=== PATIENT | female | born 1965 | race Caucasian/White ===

== ENCOUNTER 2022-12-16 08:02 | Outpatient (CLI) | payer MEDICAID, SELFPAY | END 2022-12-16 08:03 | disposition home or self-care (01) | LOC: RAD 08:04 | PROVIDERS: PCP Family Medicine; Visit Provider Family Medicine | DX: R00.2 Palpitations (principal); I51.7 Cardiomegaly; I34.0 Nonrheumatic mitral (valve) insufficiency | CPT/HCPCS: 93225; 93226; 93306 ==

== ENCOUNTER 2023-02-24 11:33 | Outpatient (CLI) | payer MEDICAID, SELFPAY | END 2023-02-24 11:34 | disposition home or self-care (01) | PROVIDERS: PCP Family Medicine; Visit Provider Internal Medicine Cardiovascular Disease | DX: I10 Essential (primary) hypertension (principal); R09.02 Hypoxemia; G93.31 Postviral fatigue syndrome; Z13.6 Encounter for screening for cardiovascular disorders; Z13.29 Encounter for screening for other suspected endocrine disorder; Z82.49 Family history of ischemic heart disease and other diseases of the circulatory system | CPT/HCPCS: 80061; 82550; 84443 ==

== ENCOUNTER 2023-08-31 13:45 | Outpatient (RCR) | payer MEDICAID, SELFPAY | END 2023-09-15 10:05 | disposition home or self-care (01) | PROVIDERS: PCP Family Medicine; Visit Provider Family Medicine | DX: M79.671 Pain in right foot (principal); M76.61 Achilles tendinitis, right leg; Z51.89 Encounter for other specified aftercare | CPT/HCPCS: 97110; 97140; 97161; 97164 ==

== ENCOUNTER 2023-12-07 17:29 | Outpatient (REF) | payer MEDICAID, SELFPAY ==
--- OUTSIDE RECORDS SUMMARY | 2023-12-07 17:34 | XMS_ITS | Encounter Summary ---
Author Name Unknown Organization [facility] Address [address] [place] [address] Care Team Providers Care State Farm Agent Team Member Name Role Phone Unavailable Primary Care Provider Unavailabl e Reason for Visit * Reason Onset Date Comments Pre-visit Intake 09/21/2023 Encounter Details Date Type Department Care Team (Latest Contact Info) Description 09/21/2023 10:15 AM PROFESSOR OF FRENCH Clinical Communication Virtual Review in [place], [place] 200 [place], [place] [phone] Pre-visit Intake Social History Tobacco Use Types Packs/Day Years Used Date Smoking Tobacco: Never Passive Smoke Exposure: Past Smokeless Tobacco: Never Tobacco Cessation:Counseling Given: Not Answered Overall Financial Resource Strain (CARDIA) Answe r Date Recorded How hard is it for you to pa y for the very basics like food, housing, medical care, and heating? Somewhat hard 09/21/2023 Exercise Vital Sign Answer Date Recorde d On average, how many days pe r week do you engage in moderate to strenuous exercise (like a brisk walk)? 1 day 09/21/2023 On average, how many minutes do you engage in exercise at this level? 40 min 09/21/2023 Hunger Vital Sign Answer Date Recorded Within the past 12 months, y ou worried that your food would run out before you got the money to buy more. Never true 09/21/20 23 Within the past 12 months, t he food you bought just didn't last and you didn't have money to get more. Never true 09/21/2023 PRAPARE - Transportation Answer Date Re corded In the past 12 months, has l ack of transportation kept you from medical appointments or from getting medications? No 09/06 In the past 12 months, has l ack of transportation kept you from meetings, work, or from getting things needed for daily living? No 09/21/2023 Nutrition Answer Date Recorded Nutrition: EVOO Fat Source Unknown 09/21 On average, how many serving s of fruits and vegetables do you eat per day (serving size is equal to 1 cup or approximately the size of a tennis ball)? 0-2 09/21/2023 Dental Answer Date Recorded Dental: Regular Dentist No 09/21/20 Employment Answer Date Recorded Employment status Retired 09/21/2023 Housing Stability Answer Date Recorded What is your living situation today? I have a [facility] place to live 09/21/2023 Sex and Gender Information Value Date Recorded Sex Assigned at Female 07/26/2023 12:31 PM CDT Gender Identity Female 07/26/2023 12:31 PM CDT Sexual Orientation Straight 07/26/2023 12 :47 PM CDT documented as of this encounter Plan of Treatment Not on file documented as of this encounter Visit Diagnoses Not on filedocumented in this encounter
--- OUTSIDE RECORDS SUMMARY | 2023-12-07 17:34 | XMS_ITS ---
Author Name Unknown Organization [facility] Address [address] [place] [address] Care Team Providers Care Senior Clinical Study Manager Name Role Phone Unavailable Primary Care Provider Unavailabl e Bariatrics Program Status:Enrolled (Active) Start date:07/26/2023 Enrollment date:07/26/2023 Related social determinants of health:Food Insecurity, Transportation Needs Continued Care and Services Coordination
--- OUTSIDE RECORDS SUMMARY | 2023-12-07 17:34 | XMS_ITS | Encounter Summary ---
Author Name Unknown Organization [facility] Address [address] [place] [id number] Care Team Providers Care Network Support Administrator Name Role Phone Unavailable Primary Care Provider Unavailabl e Reason for Visit * Outpatient (Routine) - Closed Specialty Diagnoses / Procedures Referred By Gilbert lui Referred To Contact Nutrition Diagnoses Morbid Obesity Body Mass Index 50.0-59.9 Adult (HCC) Mila Deluna M.B.B.S., Eliseo [address] [place] [phone] [facility] Referral ID Status Reason Start Date Expiration Date Visits Re quested Visits Authorized [id number] Closed 07/26/2023 07/25/2024 1 1 Encounter Details Date Type Department Care Team ([facility] st Contact Info) Description 10/04/2023 8:00 AM PLUMBING SERVICE TECHNICIAN Telemedicine Department of Nutrition and Diabetes Education in [place], [place] [address] [place] [phone] Mila Deluna M.B.B.S., MMor [address] [place] [phone] Mikey Osorio RDN, LD [address] [place] [phone] Morbid Obesity Body Mass Index 50.0-59.9 Adult (HCC) Social History Tobacco Use Types Packs/Day Years Used Date Smoking Tobacco: Never Passive Smoke Exposure: Past Smokeless Tobacco: Never Overall Financial Resource Strain (CARDIA) Answe r [...] money to buy more. Never true 09/21/20 Within the past 12 months, t he [...] your living situation today? I have a [facility] place to live 09/21/2023 Sex and Gender Information Value Date Recorded Sex Assigned at Female 07/26/2023 12:31 PM CDT Gender Identity Female 07/26/2023 12:31 PM CDT Sexual Orientation Straight 07/26/2023 12 :47 PM CDT documented as of this encounter Progress Notes * Mikey Osorio RDN, LD - 10/04/2023 8:00 AM CST CHIEF COMPLAINT/REASON FOR VISIT Medical Nutrition Therapy for Weight Management. Patient interested in bariatric surgery in addition to lifestyle modifications. Met with patient. Consult conducted via real-time audio/video technology by Mikey Osorio RDN, LDin [facility] to the patient in Patient's Home. ASSESSMENT Food/Nutrition Related History Clarisse reports previous weight loss attempts include Weight Watchers and reducing calorie intake. She successfully lost 50 pounds with Weight Watchers but was unable to sustain this weight loss. She reports a gluten intolerance and lactose intolerance. She eats most meals at home. She is responsible for cooking and grocery shopping. She eats a meals prepared outside of home approximately 1 time every couple of months. She eats sweets about 2-3 times per week and acknowledges eating salty snacks daily. Typical Daily Intake Breakfast: Skips or coconut milk yogurt, 16 ounce coffee with 3 tablespoons regular flavored creamer Morning Snack: Apple Noon Meal: 2 slices gluten free bread;2 TBSP peanut butter;2 TSP jelly;4-6 baby carrots; water Afternoon Snack: 1/2 cucumber - sliced ;2 TBSP dill dip Evening meal: 1 [employer] Gluten Free cheese burrito; water Evening Snack: Popcorn (salted with butter) - 3 cups Beverage intake: Water, unsweetened almond milk, coffee Alcohol intake: None Physical activity: Clarisse Campos reports physical therapy 1 time per week. She has limited activitydue to knee issues. Weight History Ht Readings from Last 1 Encounters: No data found for Ht Wt Readings from Last 1 Encounters: No data found for Wt BMI Readings from Last 1 Encounters: No data found for BMI NUTRITION DIAGNOSIS Food and Nutrient related knowledge deficit (NB-1.1) related to lack of prior nutrition-related education as evidenced by patient report, excellent questions, and interest. Overweight/Obesity (NC-3.3) related to imbalance between energy intake and energy expenditure as evidenced by patient's intake, activity report, and elevated BMI. Nutrition Prescription/Recommendation Calorie controlled diet in preparation for bariatric surgery (focus on fruits, vegetables, lean protein, complex carbohydrates, low-fat dairy, heart healthy fat sources, and sugar free, non-carbonated, non-alcoholic beverages) Work towards intentional weight loss through goals outlined below INTERVENTION Education and Counseling: Weight management; Bariatric Nutrition Guidelines See Patient Education Record for information regarding education materials covered today. MONITORING AND EVALUATION: Nutrition parameter to monitor: Food intake; Weight Patient Goal(s): Aim for 3 balanced, portioned meals per day with planned, portioned, purposeful snacks as needed. Work towards eating slowly aiming to eat each meal over 30 minutes. Use non- dominant hand, smaller plates and utensils, chopsticks and/or putting utensils down between bites to prolong meal times. Work towards sipping on 1 cup (8 ounces) of fluids over 30 to 60 minutes. Work towards eating (meals) and drinking (fluids) by 30 minutes before and after each meal. Increase physical activity as medically feasible. Avoid carbonation and alcohol beverages lifelong in preparation for bariatric surgery. Aim for minimum of 64 ounces of fluid per day for adequate hydration with water as main source of hydration. Avoid foods and beverages high in fat and sugar in preparation for bariatric surgery. Limit sweets and salty snacks to 1 serving or less per week. FOLLOW UP PLAN: Follow-up appointment per protocol Time spent with patient (minutes): 60 BING SERVICE TECHNICIAN documented in this encounter Plan of Treatment Not on file documented as of this encounter Visit Diagnoses Diagnosis Morbid Obesity Body Mass Index 50.0-59.9 Adult (HCC) documented in this encounter
--- OUTSIDE RECORDS SUMMARY | 2023-12-07 17:34 | XMS_ITS | Referral Summary ---
Author Name Unknown Organization [facility] Address [address] [place] [address] Care Team Providers Care Chair Mechanic Name Role Phone Unavailable Primary Care Provider Unavailabl e Source Comments Patient records contain information from all sites at [facility]. For routine questions regarding patient records, call [phone] during business hours, M-F 8:00 AM - 5:00 PM Central Time. Record requests for emergency care only can be directed to [phone] at any time.[facility] Encounters Date Type Department Care Team Description 10/19/2023 Documentation Division of Endocrinology in [place], [place] [address] [place] [phone] Zeinab Olmstead M.D. 10/05/2023 Clinical Communication Division of Endocrinology in [place], [place] [address] [place] [phone] Zeinab Olmstead M.D. 10/04/2023 8:00 AM SENIOR TAX SPECIALIST Telemedicine Department of Nutrition and Diabetes Education in [place], [place] [address] [place] [phone] Mila Deluna M.B.B.S., Mikey Kruger, RASHIDA, LD Morbid Obesity Body Mass Index 50.0-59.9 Adult (HCC) 10/03/2023 2:30 PM SENIOR TAX SPECIALIST Telemedicine Division of Endocrinology in [place], [place] [address] [place] [phone] Zeinab Olmstead M.D. Gastroesophageal Reflux Disease (Primary Dx); Morbid Obesity Body Mass Index 50.0-59.9 Adult (HCC); Hypertension Essential Primary; Obstructive Sleep Apnea Adult; Fibromyalgia 09/21/2023 10:15 AM SENIOR TAX SPECIALIST Clinical Communication Virtual Review in [place] [address] [place] [address] Pre-visit Intake from Last 3 Months Allergies Active Allergy Reactions Criticality Noted Date Comments Aspartame Headache 09/21/2023 Codeine Headache,Other (see comments) High 2022 migraine Gluten GI intolerance,Hives only, no other systemic symptoms,Itching,Rash 09/21/2023 Pollen Extracts Cough,Headache,Short ness of breath 09/21/2023 Prednisone Nausea And Vomiting, Other (see comments),Palpitations High 01/16/2023 Sumatriptan Other (see comments),Palpitations High 01/16/2023 Heart issues Medications Medication Sig Dispensed Refills Start Date End Date Status Ventolin HFA 90 mcg/actuation inhaler Inhale 2 puffs every 4 (four) hours as needed. 0 Active amLODIPine (NORVASC) 10 mg tablet Take 10 mg by mouth daily. 0 Active busPIRone (BUSPAR) 10 mg tablet Take 5 mg by mouth 2 (two) times a day. 0 08/16/2023 Active carvediloL (COREG) 6.25 mg tablet Take 6.25 mg by mouth 2 (two) times a day with meals. 0 Active DULoxetine (CYMBALTA) [address] capsule Take 30 mg by mouth daily. 0 Active DULoxetine (CYMBALTA) [address] capsule Take 60 mg by mouth daily. 0 Active furosemide (LASIX) 20 mg tablet Take 20 mg by mouth daily. 0 Active fluticasone propionate (FLONASE ALLERGY RELIEF NASAL) 0 Active LORazepam (ATIVAN) 0.5 mg tablet Take 0.5 mg by mouth as needed. 0 01/15/2023 Active mirtazapine (REMERON) 7.5 mg tablet Take 7.5 mg by mouth at bedtime. 0 Active nystatin (MYCOSTATIN) 100,000 unit/gram cream Apply 1 Application topically as needed. 0 01/09/2023 Active omeprazole (PriLOSEC) [address] capsule Take 40 mg by mouth every morning before breakfast. 0 10/22/2022 Active ondansetron ODT (ZOFRAN-ODT) 4 mg disintegrating tablet Dissolve 4 mg in the mouth as needed. 0 Active rosuvastatin (CRESTOR) 5 mg tablet Take 5 mg by mouth daily. 0 03/09/2023 Active traMADoL (ULTRAM) 50 mg tablet Take 50 mg by mouth at bedtime. 0 Active zolpidem (AMBIEN) 10 mg tablet Take 10 mg by mouth at bedtime as needed. DECREASING DOSE TO FINISH 0 01/08/2023 Active UNABLE TO FIND Airselect, short, xlarge length of use 99 months 0 01/16/2023 Active multivitamin capsule Take 1 capsule by mouth daily. 0 Active Lactobacillus acidophilus capsule Take 1 capsule by mouth daily. 0 Active Active Problems Problem Noted Date Diagnosed Date Hypertension Essential Primary 10/03/2023 Obstructive Sleep Apnea Adult 10/03/2023 Gastroesophageal Reflux Disease 10/03/2023 Fibromyalgia 10/03/2023 Morbid Obesity Body Mass Index 50.0-59.9 Adult 1 12/03/2022 Social History Tobacco Use Types Packs/Day Years [...] your living situation today? I have a [facility] place to live 09/21/2023 Sex and Gender Information Value Date Recorded Sex Assigned at Female 07/26/2023 12:31 PM CDT Gender Identity Female 07/26/2023 12:31 PM CDT Sexual Orientation Straight 07/26/2023 12 :47 PM CDT Last Filed Vital Signs Vital Sign Reading Time Taken Comments Blood Pressure - - Pulse - - Temperature - - Respiratory Rate - - Oxygen Saturation - - Inhaled Oxygen Concentration - - Weight 169 kg (372 lb) 12/07/2023 2:00 PM SENIOR TAX SPECIALIST Height - - Body Mass Index - - Plan of Treatment Not on file Medical Devices Implanted Type Area Review Manager Device Identifier Shelf Expiration Date Model / Serial / Lot Hardware E.G. Pins/Screws/Ro ds Hardware e.g. pins/screws/r ods Mouth
--- OUTSIDE RECORDS SUMMARY | 2023-12-07 17:34 | XMS_ITS | Encounter Summary ---
Author Name Unknown Organization [facility] Address [address] [place] [address] Care Team Providers Care Sheet Rock Layer Name Role Phone Unavailable Primary Care Provider Unavailabl e Encounter Details Date Type Department Care Team ([facility] st Contact Info) Description 10/19/2023 Documentation Division of Endocrinology in [place], [place] [address] [place] [phone] Zeinab Arce M.D. [address] [place] [phone] Social History Tobacco Use Types Packs/Day Years [...] your living situation today? I have a [facility] place to live 09/21/2023 Sex and Gender Information Value Date Recorded Sex Assigned at Female 07/26/2023 12:31 PM CDT Gender Identity Female 07/26/2023 12:31 PM CDT Sexual Orientation Straight 07/26/2023 12 :47 PM CDT documented as of this encounter Progress Notes * Zeinab Arce M.D. - 10/19/2023 10:45 AM CST Testing completed in September of 2023 was reviewed. These included blood counts, electrolytes and metabolic parameters. Her fasting blood glucose was mildly elevated but her hemoglobin A1c was withinnormal. We will proceed with the evaluation as planned. E RESEARCHER documented in this encounter Plan of Treatment Not on file documented as of this encounter Visit Diagnoses Not on filedocumented in this encounter
--- OUTSIDE RECORDS SUMMARY | 2023-12-07 17:34 | XMS_ITS | Encounter Summary ---
Author Name Unknown Organization [facility] Address [address] [place] [address] Care Team Providers Care Sourcer Name Role Phone Unavailable Primary Care Provider Unavailabl e Reason for Visit * Reason Onset Date Comments Pre-Visit Nurse Assessment Phone call for Weight Management 07/26/2023 * Appointment Request (Routine) - Authorized Specialty Diagnoses / Procedures Referred By Gilbert lui Referred To Contact Endocrinology Diagnoses Gain Weight Referral ID Status Reason Start Date Expiration Date V isits Requested Visits Authorized [id number] Authorized 07/03/2023 07/02/2024 1 1 Encounter Details Date Type Department Care Team (Latest Contact Info) Description 07/26/2023 8:30 AM CDT Clinical Communication Division of Endocrinology in [place], [place] [address] [place] [phone] Corine Lafleur, R.N. Pre-Visit Nurse Assessment Phone call for Weight Management Social History Tobacco Use Types Packs/Day Years Used Date Smoking Tobacco: Never Assessed Nutrition Answer Date Recorded Nutrition: EVOO Fat Source Unknown 07/03 Nutrition: Servings of Fruits/Vegetables per Day Not on file 07/03/2023 Dental Answer Date Recorded Dental: Regular Dentist Unknown 07/03/20 23 Sex and Gender Information Value Date Recorded Sex Assigned at Female 07/26/2023 12:31 PM CDT Gender Identity Female 07/26/2023 12:31 PM CDT Sexual Orientation Straight 07/26/2023 12 :47 PM CDT documented as of this encounter Miscellaneous Notes * Telephone Encounter - Corine Lafleur, R.N. - 07/26/2023 8:08 AM CDT Pre-Visit Nurse Assessment Phone Call for weight management evaluation CHIEF COMPLAINT/REASON FOR CALL Patient was contacted for the pre-visit nurse assessment. Patient expressed interest in Bariatric Surgery. HISTORY OF PRESENT ILLNESS Patient responses to Medical and Psychosocial History Questionnaire: What is your height? (please respond in feet and inches) 5 ft 6 in What is your weight? (please respond in pounds) 360 Calculate your BMI using the BMI calculator (link opens a new window, calculate and return to questions) 58.1 Are you seeking a procedure or a surgery to promote weight loss? Yes Select one or multiple Bariatric Surgery Which of these medical problems do you have? (select all that apply) High blood pressure, Obstructive sleep apnea, Lymphedema, History of coronary artery disease (CAD) How do you describe your sleep apnea? Diagnosed Are you using a CPAP most days? Yes Is your lymphedema controlled well? No Have you been diagnosed with gastrointestinal (GI) dysmotility (impaired movement of food or fluidsthrough the GI tract, esophagus, or stomach)? No Have you regularly used narcotic or opioid medications as prescribed by your doctor over the past three months (e.g. oxycodone, norco)? No Have you ever been diagnosed with a mental health condition? Yes What mental health condition(s) were you diagnosed with? (select all that apply) Depression, Anxiety, Post-traumatic stress disorder (PTSD) Have you ever been under the care of a mental health provider? This would include a counselor, psychologist, or psychiatrist Yes Are you currently taking any medications to improve your mood, thoughts or behavior, otherwise known as psychotropic drugs? (e.g. Xanax, Zoloft, Celexa, Prozac, Ativan, Prozac, Wellbutrin, Lexapro, etc.) Yes How many medications are you taking to improve your mood, thought, or behavior? 2 Have you been hospitalized for a mental health condition? No Have you ever attempted suicide? No How many times in the past year have you used an illegal drug or used a prescription medication fornonmedical reasons? None Have you ever been in treatment for substance use (e.g. alcohol, drug, prescription medications)? No Have you ever been diagnosed with or treated for bulimia or anorexia? No Have you ever made yourself vomit, misused laxatives or water pills, didn't eat enough food to support your body's needs, or exercised too much to control your weight? No Do you regularly use tobacco, nicotine, e-cigarettes or vaping products? No Do you have a support person(s) in your life? (A support person is someone who can help you as you are recovering from bariatric surgery or someone who can be there for you when you are feeling down)Yes How many support persons do you have? More than one capable support person Are you able to live on your own without any help? Yes Do you have any barriers to learning such as cognitive, reading, hearing, or visual? No On average, how many days a week do you have an alcoholic drink? 0 On a typical drinking day, how many drinks do you have? 0 How many times in the past year have you drank more than 5 drinks (for men), or more than 4 drinks (for women) in one day? 0 In the last year, how much weight have you gained? greater than 35 lbs Are you currently taking any blood thinning medications? (ex. Eliquis, Pradaxa, Savaysa, Lovenox, Heparin, Xarelto, Coumadin) No Did you watch the educational videos and links that were sent to you? Yes ASSESSMENT/PLAN We will request appropriate appointments at [facility] including Endocrinology, Psychology, and Nutrition. Our schedulers will contact the patient. I explained that there may be patient-specific surgical prerequisites recommended by the bariatric team. Patient identified no barriers to learning. Our contact number was provided. Education: patient/caller able to teach back. The following references were used: nursing clinical judgement. documented in this encounter Plan of Treatment Not on file documented as of this encounter Visit Diagnoses Not on filedocumented in this encounter
--- OUTSIDE RECORDS SUMMARY | 2023-12-07 17:34 | XMS_ITS | Clinical Summary ---
Author Name Unknown Organization [facility] Address [address] [place] [address] Care Team Providers Care Drier Operator Name Role Phone Unavailable Primary Care Provider Unavailabl e Source Comments Patient records contain information from all sites at [facility]. For routine questions regarding patient records, call [phone] during business hours, M-F 8:00 AM - 5:00 PM Central Time. Record requests for emergency care only can be directed to [phone] at any time.[facility] Allergies Active Allergy Reactions Criticality Noted Date [...] Body Mass Index 50.0-59.9 Adult 1 12/03/2022 Encounters Date Type Department Care Team Description 10/19/2023 Documentation Division of Endocrinology in [place], [place] [address] [place] [address] Zeinab Olmstead M.D. 10/05/2023 Clinical Communication Division of Endocrinology in [place], [place] [address] [place] [phone] Zeinab Olmstead M.D. 10/04/2023 8:00 AM [facility] Telemedicine Department of Nutrition and Diabetes Education in [place], [place] [address] [place] [address] Mila Deluna M.B.B.S., M.D. Mikey Osorio RDN, LD Morbid Obesity Body Mass Index 50.0-59.9 Adult (HCC) 10/03/2023 2:30 PM TECHNICAL PRODUCER Telemedicine Division of Endocrinology in [place], [place] [address] [place] [phone] Zeinab Olmsteda M.D. Gastroesophageal Reflux Disease (Primary Dx); Morbid Obesity Body Mass Index 50.0-59.9 Adult (HCC); Hypertension Essential Primary; Obstructive Sleep Apnea Adult; Fibromyalgia 09/21/2023 10:15 AM TECHNICAL PRODUCER Clinical Communication Virtual Review in [place], [place] [address] [place] [address] Pre-visit Intake from Last 3 Months Social History Tobacco Use Types Packs/Day Years [...] your living situation today? [facility] a [facility] 09/21/2023 Sex and [...] 169 kg (372 lb) 12/07/2023 2:00 PM TECHNICAL PRODUCER Height - - Body Mass Index - - Plan of Treatment Health Maintenance Due Date Last Done Comments CT Colonography 1965 Cervical Cancer Screening 1965 Cologuard 1965 Colonoscopy 1965 Colorectal Cancer Screening 1965 Creatinine Level (Kidney Function Test) 1965 FIT 1965 Fasting Glucose for Diabetes Screening 1965 HIV Screening 1965 Hepatitis C Screening 1965 Lipid (Cholesterol) Screening 1965 Mammogram 1965 Office Visit for Blood Pressure Check / Re-check 1965 Potassium Level 1965 Sodium Level 1965 Depression Screening (Annual PHQ-2) 11/06/2023 DTaP,Tdap,and Td Vaccines (2 - Td or Tdap) 08/29/2028 08/29/2018 Zoster Vaccines Completed 10/20/2020, 08/06/2020 Hepatitis B Vaccines Completed 11/17/2022, 07/20/2022, 08/03/2015 Influenza Vaccine Completed 08/22/2023, , 07/29/2022, Additional history exists COVID-19 Vaccine Completed 09/19/2023, , 03/08/2022, Additional history exists Pneumococcal vaccine (0-64 years) Aged Out No longer eligible based on patient's age to complete this topic Medical Devices Implanted Type Area Accessibility Lift Technician Device Identifier Shelf Expiration Date Model / Serial / Lot Hardware E.G. Pins/Screws/Ro ds Hardware e.g. pins/screws/r ods Mouth
--- OUTSIDE RECORDS SUMMARY | 2023-12-07 17:34 | XMS_ITS | Encounter Summary ---
Author Name Unknown Organization [facility] Address [address] [place] [address] Care Team Providers Care Toddler Nanny Name Role Phone Unavailable Primary Care Provider Unavailabl e Reason for Referral * Behavioral Health (Routine) - Closed Specialty Diagnoses / Procedures Referred By Gilbert lui Referred To Contact Psychiatry / Psychiatry and Psychology Diagnoses Morbid Obesity Body Mass Index 50.0-59.9 Adult ([facility]) Mila Deluna M.B.B.S., M.D. [address] [place] [address] [facility] Referral ID Status Reason Start Date Expiration Date Visits Re quested Visits Authorized [id number] Closed 07/26/2023 07/25/2024 1 1 Scheduling Instructions Okay to schedule prior to Endo consult if open, but both visits should be within a week of each other * Outpatient (Routine) - Closed Specialty Diagnoses / Procedures Referred By Gilbert lui Referred To Contact Nutrition Diagnoses Morbid Obesity Body Mass Index 50.0-59.9 Adult ([facility]) Mila Deluna M.B.B.S., M.D. [address] [place] [address] [facility] Referral ID Status Reason Start Date Expiration Date Visits Re quested Visits Authorized [id number] Closed 07/26/2023 07/25/2024 1 1 Scheduling Instructions Should be scheduled after Endo consult * Outpatient (Routine) - Closed Specialty Diagnoses / Procedures Referred By Gilbert lui Referred To Contact Endocrinology Diagnoses Morbid Obesity Body Mass Index 50.0-59.9 Adult (HCC) Mila Deluna M.B.B.S., M.D. [address] [place] [address] [facility] Referral ID Status Reason Start Date Expiration Date Visits Re quested Visits Authorized [id number] Closed 07/26/2023 07/25/2024 1 1 Scheduling Instructions Should be scheduled first before Nutrition. Can be scheduled after Psych if visits are within a week of each other Encounter Details Date Type Department Care Team (Late st Contact Info) Description 07/26/2023 Orders Only Division of Endocrinology in [place], [place] [address] [place] [address] Corine Lafleur R.N. Morbid Obesity Body Mass Index 50.0-59.9 Adult (HCC) (Primary Dx) Social History Tobacco Use Types Packs/Day Years [...] as of this encounter Plan of Treatment Scheduled Referrals Name Type Priority Associated Diagnoses Order Schedule Endocrinology - Bariatric consult (clinic) Outpatient Referral Routine Morbid Obesity Body Mass Index 50.0-59.9 Adult (HCC) Expected: 07/26/2023 (Approximate), Expires: 10/25/2024 Nutrition - Bariatrics medical nutrition therapy consult (clinic) Outpatient Referral Routine Morbid Obesity Body Mass Index 50.0-59.9 Adult (HCC) Expected: 07/26/2023 (Approximate), Expires: 10/25/2024 Psychiatry and Psychology - Bariatric consult (clinic) Outpatient Referral Routine Morbid Obesity Body Mass Index 50.0-59.9 Adult (HCC) Expected: 07/26/2023 (Approximate), Expires: 10/25/2024 documented as of this encounter Visit Diagnoses Diagnosis Morbid Obesity Body Mass Index 50.0-59.9 Adult (HCC)- Primary documented in this encounter
--- OUTSIDE RECORDS SUMMARY | 2023-12-07 17:34 | XMS_ITS | Encounter Summary ---
Author Name Unknown Organization [facility] Address [address] [place] [address] Care Team Providers Care Optical Scientist Name Role Phone Unavailable Primary Care Provider Unavailabl e Encounter Details Date Type Department Care Team (Latest Contact Info) Description 10/05/2023 Clinical Communication Division of Endocrinology in [place], [place] [address] [place] [address] Zeinab Arce M.D. [address] [place] [phone] Social History Tobacco Use Types Packs/Day Years [...] your living situation today? I have a [facility] place to live 09/21/2023 Sex and [...]
--- OUTSIDE RECORDS SUMMARY | 2023-12-07 17:34 | XMS_ITS ---
Author Name Unknown Organization [facility] Address [address] [place] [address] Care Team Providers Care Neckties Painter Name Role Phone Unavailable Unavailable Unavailable Surgery Details Not on file Complications Check Surgery Details section. Procedure Estimated Blood Loss Check Surgery Details section. Procedure Findings Check Surgery Details section. Procedure Specimens Taken Check Surgery Details section.
--- OUTSIDE RECORDS SUMMARY | 2023-12-07 17:34 | XMS_ITS | Encounter Summary ---
Author Name Unknown Organization [facility] Address [address] [place] [address] Care Team Providers Care Manager Marketing Name Role Phone Unavailable Primary Care Provider Unavailabl e Reason for Visit * Outpatient (Routine) - Closed Specialty Diagnoses / Procedures Referred By Gilbert lui Referred To Contact Endocrinology Diagnoses Morbid Obesity Body Mass Index 50.0-59.9 Adult (HCC) Mila Deluna M.B.B.S., M.D. [address] [place] [phone] [facility] Referral ID Status Reason Start Date Expiration Date Visits Re quested Visits Authorized [id number] Closed 07/26/2023 07/25/2024 1 1 Encounter Details Date Type Department Care Team (Latest Contact Info) Description 10/03/2023 2:30 PM HAND DECORATOR Telemedicine Division of Endocrinology in [place], [place] [address] [place] [phone] Zeinab Arce M.D. [address] [place] [address] Gastroesophageal Reflux Disease (Primary Dx); Morbid Obesity Body Mass Index 50.0-59.9 Adult (HCC); Hypertension Essential Primary; Obstructive Sleep Apnea Adult; Fibromyalgia Social History Tobacco Use Types Packs/Day Years [...] your living situation today? I have a [facility] place to live 09/21/2023 Sex and Gender Information Value Date Recorded Sex Assigned at Female 07/26/2023 12:31 PM CDT Gender Identity Female 07/26/2023 12:31 PM CDT Sexual Orientation Straight 07/26/2023 12 :47 PM CDT documented as of this encounter Consult Notes * Zeinab Arce M.D. - 10/03/2023 2:30 PM CST SUBJECTIVE Telemedicine. CHIEF COMPLAINT / REASON FOR VISIT Weight management. HISTORY OF PRESENT ILLNESS Clarisse Campos is a 58 y.o. female who I am asked to see in consultation for evaluation and treatment of obesity. She is interested in bariatric surgery. She is a new patient to [facility] and have limited access to outside medical records. I did review thoseavailable in Care everywhere. She is currently at her heaviest weight of 360 lb. MEDICAL CO-MORBIDITIES: Patient Active Problem List Diagnosis Hypertension Essential Primary Obstructive Sleep Apnea Adult Gastroesophageal Reflux Disease Fibromyalgia HISTORY OF WEIGHT LOSS EFFORTS: Successful weight loss techniques attempted: Weight Watchers and she was able to lose 50 lb. Unsuccessful weight loss techniques attempted: self-directed dieting and Weight Watchers CURRENT EXERCISE HABITS: She participates in physical therapy for 45 minutes once a week. Activity Tracker: no CURRENT EATING HABITS: Obstacles to changes in eating habits? not feeling full or satisfied after a meal OTHER POTENTIAL CONTRIBUTING FACTORS: Psych History: mood disorder Comorbidities: GERD, High blood pressure, Osteoarthritis, and obstructive sleep apnea currently using a CPAP. The following portions of the patient's history were reviewed and updated as appropriate: allergies, current medications, family history, medical history, social history, surgical history, and problem list. REVIEW OF SYSTEMS She is a nonsmoker. She uses her CPAP faithfully. She had a recent medical assessment with laboratory tests. I do not have these available for my review. She did complete an echocardiogram earlier this year that revealed a leaky mitral valve leaflet otherwise no abnormalities. OBJECTIVE Reported HT: -165 cm WT: -163 kg BMI-60 kilograms/meter squared DIAGNOSTICS None available. ASSESSMENT / PLAN #1 Obesity Body Mass Index 50.0-59.9 Adult #2 Gastroesophageal Reflux Disease #3 Hypertension Essential Primary #4 Obstructive Sleep Apnea Adult #5 Fibromyalgia I do not have access to most recent height and weight, however based on her reported values her estimated body mass index is 50 kilograms/meter squared. This meets criteria for class 3 obesity. She has weight related medical complications that would benefit from weight loss. She is a candidate for b ariatric surgery. She is of low medical complexity. I have discussed the details of the evaluation required. Educational materials were reviewed. An appointment with a dietitian will be requested. The goal is at minimum weight maintenance. We discussed the importance or regular physical activity for correction success. The goal of physical activity in preparation for surgery is to improve fitness in the hopes of lowering perioperative risks for complications including . intermediate frame tender regular physical activity is the main predictor ofweight maintenance. I have encouraged monitoring of steps in order to minimize sedentary days. The goal will be at least 5000 steps daily. We also discussed the long-term goal of at least 150 minutes of exercise per week. She has seen our behavioral psychologist. The recommended participation in are 12 week program. I have discussed the following operations:Tio en Y gastric bypass and Biliopancreatic Diversion and Duodenal Switch. I have discussed the procedures themselves, weight loss outcomes, impact on medical co-morbidities, perioperative risks including risk of , correction risk for nutritional deficiencies and need for rodent exterminator nutritional supplements and follow up. We have discussed the risk factors associated with higher risk for complication and with bariatric surgery. These include the severity of obesity, inactivity, smoking, untreated obstructive sleep apnea to name a few. As a result we require at minimum weight maintenance, implementation of an activity program, smoking cessation and adequate control of health conditions such as treatment of Obstructive Sleep Apnea and HgbA1c < 8% for patients with diabetes. I have requested that she submit the laboratory tests recently completed for my review. I will review the results of the testing and communicate additional recommendations. Referral for bariatric surgery consultation will be pursued when the following is completed: 1. Lifestyle interventions to maintain weight (Diet and exercise). 2. Completion of recommendations outlined by our behavioral psychologists 3. Completion of medical evaluation recommended 4. Compliance with CPAP therapy I personally spent a total of 55 minutes in yjb-[id number]-face time performing a review of the recordand/or discussion with the patient/caregiver as described above. DECORATOR documented in this encounter Plan of Treatment Not on file documented as of this encounter Visit Diagnoses Diagnosis Gastroesophageal Reflux Disease- Primary Morbid Obesity Body Mass Index 50.0-59.9 Adult (HCC) Hypertension Essential Primary Obstructive Sleep Apnea Adult Fibromyalgia documented in this encounter
[2023-12-07 18:22] LABS: Basophils Percent Auto 0.6 % (0.0-3.0); Eosinophils Percent Auto 0.8 % (0.0-7.0); Hematocrit 42.7 % (33.0-51.0); Hemoglobin* 13.6 gm/dL (12.0-16.0); Immature Granulocytes Pct Auto 0.3 %; Lymphocytes Percent Auto 16.2 % (20-44); Mean Corpuscular HGB Conc 32 gm/dL (32-36); Mean Corpuscular Hemoglobin 27 pg (26-34); Mean Corpuscular Volume 83 fL (80-100); Monocytes Percent Auto 6.6 % (0.0-11.0); Neutrophils Percent Auto 75.5 % (42.0-72.0); Platelet Count* 454 K/uL (140-440); RDW Coefficient of Variation % 15.7 % (11.5-15.5); Red Blood Count 5.12 m/uL (4.00-5.20)
[2023-12-07 18:24] LABS: Slide Review Reflex No
[2023-12-07 18:26] LABS: Chloride* 102 mmol/L (96-114); Potassium* 4.3 mmol/L (3.6-5.1); Sodium* 138 mmol/L (135-149)
[2023-12-07 18:28] LABS: Creatinine* 0.8 mg/dL (0.5-1.5); Estimated Glomerular Filt Rate 85 ml/min
[2023-12-07 18:29] LABS: Anion Gap 16 mEq/L (7-15); Blood Urea Nitrogen* 17 mg/dL (7-30); Calcium* 10.4 mg/dL (8.4-10.6); Carbon Dioxide* 20 mmol/L (20-32); Glucose* 110 mg/dL (60-115)
[2023-12-07 18:46] LABS: Vitamin D 25 Hydroxy* 21 ng/mL (30-80)
== END 2023-12-07 17:30 | disposition home or self-care (01) ==
LOC: NPINS 17:29
PROVIDERS: PCP Family Medicine; Visit Provider Family Medicine
DX: R53.83 Other fatigue (principal); R60.0 Localized edema
CPT/HCPCS: 80048; 82306; 84443; 85025

== ENCOUNTER 2024-02-02 14:59 | Emergency (ER) | payer MEDICAID, SELFPAY ==
[2024-02-02 15:22] VITALS: BP 163/93; PULSE 117; RESP 22; TEMP 37.2; O2SAT 94; BMI 60.0
--- NOTE | 2024-02-02 15:29 | CT_ITS ---
Patient: RAPHAEL BEE Facility:?[facility] Patient ID:?[id number] Site Patient ID:?[id number]. Site :?[id number] Study:?CT-Chest PE W/ISOVUE 370 95CC-02/02/2024 4:45:32 PM Ordering Physician:DONI Final Report: Indication: cough, dyspnea, abnormal D dimer Technique: CT angiogram of the chest was performed for evaluation of pulmonary embolism. 95 mL of Isovue 370 intravenous contrast was administered. Comparison: None. Findings: CARDIOVASCULAR: Diagnostic quality: Contrast opacification of the pulmonary arterial circulation is adequate for assessment of pulmonary embolism. Study is not significantly limited by respiratory motion artifact. Pulmonary arteries: No filling defects to suggest pulmonary embolism. Not enlarged. Heart: No interventricular septal deviation. Normal in size. No significant coronary artery calcification. No significant valvular calcification. Pericardium: No pericardial effusion. Thoracic aorta: No significant abnormality. Two-vessel arch. REMAINING CHEST: Medical devices: None. Thyroid: Normal. Lymph nodes: No supraclavicular, axillary, mediastinal, or hilar lymphadenopathy. Other mediastinal structures: No significant abnormality. Lung parenchyma: Mild ill-defined patchy areas of consolidation and centrilobular nodularity are seen in the bilateral lungs. Airways: Moderate bronchial wall thickening. Pleura: No significant abnormality. Chest wall: No significant abnormality. Upper abdomen: No significant abnormality. Musculoskeletal: No significant abnormality. Impression: 1. No acute pulmonary embolism. 2. Mild ill-defined patchy areas of consolidation and centrilobular nodularity in the bilateral lungs are favored to represent multifocal infection. Recommend follow-up CT to ensure resolution. 3. Moderate bronchial wall thickening may represent airways infection or inflammation. Please note that all CT scans at this facility use dose modulation, iterative reconstruction, and/or weight-based dosing when appropriate to reduce radiation dose to as low as reasonably achievable. Dictated by Phani Hewitt MD @ 02/02/2024 5:26:22 PM Signed by:?Phani Hewitt MD @02/02/2024 5:26:22 PM (Electronic Signature)
--- NOTE | 2024-02-02 18:50 | ED.GENADULT ---
HPI - General Adult General Chief complaint: Cough Stated complaint: pneumonia Time Seen by Provider: 02/02/24 18:49 History of Present Illness HPI narrative: This is a pleasant 58-year-old female returns for drum the Urgent Care to the ER today for evaluation of abnormal D-dimer testing. She needs a CT PA to rule out PE. She actually presented to the urgent care today with concern for cough, shortness of breath. She had presented with about a 1 month at 3 is cough, shortness of breath, wheezing. She was already worked up in the urgent care. She was given prescriptions for nebulizers, oral steroids, inhaled steroids, and antibiotics to treat for community-acquired pneumonia. As part of her workup in the urgent care she did have lab testing, including D-dimer which was abnormal, prompting referral to the ER. Patient is not having any pleuritic chest pain. No hemoptysis. No history of DVT or PE. No swelling in her legs. Related Data Home Medications Medication Instructions Recorded Confirmed albuterol sulfate 90 mcg/actuation 2 puff inhalation Q4-6H PRN 08/25/22 02/02/24 aerosol inhaler carvedilol 6.25 mg tablet 6.25 mg PO BID 08/25/22 02/02/24 lactobacillus combination no.4 3 3,000 mmu cells PO QDAY 08/25/22 02/02/24 billion cell capsule (Probiotic) lorazepam 0.5 mg tablet 0.5 mg PO QDAY PRN 08/25/22 02/02/24 omeprazole 40 mg capsule,delayed 40 mg PO QDAY 08/25/22 02/02/24 release ondansetron 4 mg disintegrating 4 mg PO Q8H 08/25/22 02/02/24 tablet zolpidem 10 mg tablet 10 mg PO QHS PRN 08/25/22 02/02/24 amlodipine 10 mg tablet 10 mg PO DAILY 08/18/23 02/02/24 buspirone 5 mg tablet 5 mg PO BID 08/18/23 02/02/24 duloxetine 60 mg capsule,delayed 60 mg PO QDAY 08/18/23 02/02/24 release mirtazapine 7.5 mg tablet 7.5 mg PO QPM 08/18/23 02/02/24 multivitamin (Multiple Vitamins 1 tab PO QDAY 08/18/23 02/02/24 tablet) rosuvastatin 5 mg tablet 5 mg PO DAILY 08/18/23 02/02/24 fluticasone propionate 110 1 puff inhalation BID 02/02/24 02/02/24 mcg/actuation HFA aerosol inhaler Previous Rx's Medication Instructions Recorded albuterol sulfate 90 mcg/actuation 2 puff inhalation Q4H PRN 02/02/24 aerosol inhaler shortness of breath or wheezing #1 ea amoxicillin 875 mg-potassium 1 tab PO BID 7 days #14 tabs 02/02/24 clavulanate 125 mg tablet doxycycline hyclate 100 mg tablet 100 mg PO BID 7 days #14 tabs 02/02/24 fluconazole 150 mg tablet 150 mg PO Q3D 2 doses #2 tabs 02/02/24 ipratropium 0.5 mg-albuterol 3 mg 3 ml inhalation Q4H PRN shortness 02/02/24 (2.5 mg base)/3 mL nebulization of breath or wheezing #90 mL soln methylprednisolone 4 mg tablets in See Rx Instructions PO PER PKG DIR 02/02/24 a dose pack #21 ea Allergies Allergy/AdvReac Type Severity Reaction Status Date / Time acetaminophen Allergy Intermediate Migraine Verified 02/02/24 12:09 [From Tylenol-Codeine] codeine Allergy Intermediate Migraine Verified 02/02/24 12:09 [From Tylenol-Codeine] prednisone Allergy Intermediate tachycardia Verified 02/02/24 12:09 sumatriptan [From Imitrex] Allergy Intermediate Verified 02/02/24 12:09 [facility]LY [facility] PFS Medical History Anxiety ?F41.9 - Anxiety disorder, unspecified (ICD-10) Depression ?F32.A - Depression, unspecified (ICD-10) Hypertension ?I10 - Essential (primary) hypertension (ICD-10) Fibromyalgia ?M79.7 - Fibromyalgia (ICD-10) Surgical History H/O excision of ganglion cyst (10/2020) ?Z98.890 - Other specified postprocedural states (ICD-10) History of arthroplasty of finger of left hand (2020) ?Z96.692 - Finger-joint replacement of left hand (ICD-10) H/O total hysterectomy (10/2004) ?Z90.710 - Acquired absence of both cervix and uterus (ICD-10) History of arthroscopy of right shoulder (1994) ?Z98.890 - Other specified postprocedural states (ICD-10) Social History Smoking Status: Never smoker Do you use any of these nicotine containing products: None Second hand tobacco smoke exposure: No Exam Narrative: Exam Narrative: Constitutional: Appears well-developed and well-nourished. Alert. Conversant. Very polite. Non toxic. HENT: Head: Atraumatic. Nose: Nose normal. Mouth/Throat: Oral mucosa is clear and moist. no trismus. Eyes: Conjunctivae normal. EOM normal. Pupils equal, round, and reactive to light. No scleral icterus. Neck: Normal range of motion. Neck supple. No tracheal deviation present. No JVD Cardiovascular: Normal rate, regular rhythm. No gallop. No friction rub. No murmur heard. Pulmonary/Chest: Effort normal. No stridor. No respiratory distress. Bilateral fine wheezes and rales. No respiratory distress. Overall good aeration. No tenderness. Abdominal: Soft. Bowel sounds normal. No distension. No mass. No tenderness. No rebound. No guarding. Musculoskeletal: RUE: Normal range of motion. No tenderness. No deformity LUE: Normal range of motion. No tenderness. No deformity RLE: Normal range of motion. No edema. No tenderness. No deformity LLE: Normal range of motion. No edema. No tenderness. No deformity Neurological: Alert and oriented to person, place, and time. Normal strength. CN II-VII intact. No sensory deficit. GCS eye subscore is 4. GCS verbal subscore is 5. GCS motor subscore is 6. Normal coordination Skin: Skin is warm and dry. No rash noted. No pallor. Normal capillary refill. Psychiatric: Normal mood. Normal affect. Const: Vital Signs, click to edit/add: Vital Signs - 24 hr 02/02/24 15:22 Temperature 99.0 F Pulse Rate [Pulse Oximeter] 117 H Respiratory Rate 22 Blood Pressure [Ri ght Upper Arm] 163/93 H Pulse Oximetry 94 Oxygen Delivery Me thod Room Air Course Vital Signs Vital signs: Initial Vital Signs Temperature 99.0 F 02/02/24 15:22 Temperature Source Temporal Artery Scan 02/02/24 15:22 Pulse Rate 117 H 02/02/24 15:22 Respiratory Rate 22 02/02/24 15:22 Blood Pressure 163/93 H 02/02/24 15:22 Blood Pressure Mean 116 H 02/02/24 15:22 Blood Pressure Position Sitting 02/02/24 15:22 Pulse Oximetry 94 02/02/24 15:22 Oxygen Delivery Method Room Air 02/02/24 15:22 Vital Signs Temperature 99.0 F 02/02/24 15:22 Pulse Rate 117 H 02/02/24 15:22 Respiratory Rate 22 02/02/24 15:22 Blood Pressure 163/93 H 02/02/24 15:22 Pulse Oximetry 94 02/02/24 15:22 Oxygen Delivery Method Room Air 02/02/24 15:22 Temperature 99.0 F 02/02/24 15:22 Pulse Rate 117 H 02/02/24 15:22 Respiratory Rate 22 02/02/24 15:22 Blood Pressure 163/93 H 02/02/24 15:22 Pulse Oximetry 94 02/02/24 15:22 Oxygen Delivery Method Room Air 02/02/24 15:22 Medical Decision Making MDM Narrative Medical decision making narrative: Very polite 58-year-old female referred from urgent care today for evaluation of abnormal D-dimer. She actually has symptoms of cough with wheezing and abnormal lung sounds ongoing for the past month. She had already received nebulizers in urgent care and is doing better now that she was there. At this point there is no respiratory distress, hypoxia, or indication for hospitalization. I think it is appropriate for her to start on antibiotics given the lung findings on CT as well as treat for bronchospasm with bronchodilators and steroids per Fortunately CT scan shows no evidence for PE on her chest CT today. There are bilateral infiltrates which could be consistent with an atypical pneumonia. She is already on antibiotics-doxycycline and Augmentin prescribed by urgent care. Patient is stage for outpatient management. Discussed the for follow-up for repeat chest x-ray. Precautions for return to the ER reviewed and patient's questions were answered. She is eager for discharge and comfortable with the plan of care. Imaging Data CT scan - chest: Attestation: I have reviewed the pertinent imaging results. Radiologist's impression: Impression: 1. No acute pulmonary embolism. 2. Mild ill-defined patchy areas of consolidation and centrilobular nodularity in the bilateral lungs are favored to represent multifocal infection. Recommend follow-up CT to ensure resolution. 3. Moderate bronchial wall thickening may represent airways infection or inflammation. Discharge Plan Discharge Clinical Impression: Pneumonia Qualifiers: Pneumonia type: due to unspecified organism Laterality: unspecified laterality Lung location: unspecified part of lung Qualified Code(s): J18.9 - Pneumonia, unspecified organism Patient Disposition: Home, Self-Care Condition: Stable Instructions: Community Acquired Pneumonia (DC) Additional Instructions: Please take the antibiotics, nebulizers, and steroids as prescribed by the urgent care. It will typically take 2 or 3 days for symptoms to get better on the antibiotics. If you get any worse, come back to the urgent care or ER right away to be rechecked. Even if you get better, please recheck with your regular doctor or the urgent care in about 2 weeks to have a follow-up chest x-ray to make sure all of your areas of pneumonia have resolved. Prescriptions: No Action amlodipine 10 mg tablet 10 mg PO DAILY buspirone 5 mg tablet 5 mg PO BID mirtazapine 7.5 mg tablet 7.5 mg PO QPM rosuvastatin 5 mg tablet 5 mg PO DAILY multivitamin [Multiple Vitamins] Tablet 1 tab PO QDAY carvedilol 6.25 mg tablet 6.25 mg PO BID Rx Instructions: must administer with a meal/food omeprazole 40 mg capsule,delayed release(DR/EC) 40 mg PO QDAY zolpidem 10 mg tablet 10 mg PO QHS PRN lorazepam 0.5 mg tablet 0.5 mg PO QDAY PRN ondansetron 4 mg tablet,disintegrating 4 mg PO Q8H Probiotic 3 billion cell capsule 3,000 mmu cells PO QDAY Rx Instructions: administer with a meal albuterol sulfate 90 mcg/actuation HFA aerosol inhaler 2 puff inhalation Q4-6H PRN duloxetine 60 mg capsule,delayed release(DR/EC) 60 mg PO QDAY fluticasone propionate 110 mcg/actuation HFA aerosol inhaler 1 puff inhalation BID ipratropium-albuterol 0.5 mg-3 mg(2.5 mg base)/3 mL solution for nebulization 3 ml inhalation Q4H PRN (Reason: shortness of breath or wheezing) Qty: 90 2RF methylprednisolone 4 mg tablets,dose pack See Rx Instructions PO PER PKG DIR Qty: 21 0RF Rx Instructions: PO PER PKG DIR albuterol sulfate 90 mcg/actuation HFA aerosol inhaler 2 puff inhalation Q4H PRN (Reason: shortness of breath or wheezing) Qty: 1 0RF doxycycline hyclate 100 mg tablet 100 mg PO BID 7 Days Qty: 14 0RF amoxicillin-pot clavulanate 875-125 mg tablet 1 tab PO BID 7 Days Qty: 14 0RF fluconazole 150 mg tablet 150 mg PO Q3D Qty: 2 0RF Rx Instructions: may repeat second dose 72 hrs after first dose if symptoms persist Follow Up/Referrals: Hattie Ugalde [Primary Care Provider] - Stand Alone Forms: Secure [employer] Info Instructions
== END 2024-02-02 19:07 | disposition home or self-care (01) ==
LOC: ED 19:05
PROVIDERS: Emergency Provider Emergency Medicine; PCP Family Medicine
DX: J18.9 Pneumonia, unspecified organism (principal)
CPT/HCPCS: 71275; 85379; 99283; 99284; Q9967

== ENCOUNTER 2024-02-26 09:49 | Outpatient (CLI) | payer MEDICAID, SELFPAY ==
--- OUTSIDE RECORDS SUMMARY | 2024-02-26 09:51 | XMS_ITS | Encounter Summary ---
Author Name Unknown Organization [facility] Address [address] [place] [address] Care Team Providers Care Mutual Funds Agent Name Role Phone Unavailable Primary Care Provider Unavailabl e Reason for Referral * Outpatient (Routine) - Authorized Specialty Diagnoses / Procedures Referred By Gilbert lui Referred To Contact Endocrinology Diagnoses Morbid Obesity Body Mass Index 50.0-59.9 Adult (HCC) Zeinab Arce M.D. [address] [place] [address] [facility] Referral ID Status Reason Start Date Expiration Date V isits Requested Visits Authorized [id number] Authorized 02/05/2024 08/06/2025 1 1 Scheduling Instructions Face to face visit with Dr. Arce or any Endo Nutrition MD. Reason for Visit * Reason Onset Date Comments 12-week group completed 01/29/2024 Encounter Details Date Type Department Care Team (Latest Contact Info) Description 01/29/2024 Clinical Communication Division of Endocrinology in [place], [place] [address] [place] [phone] Zeinab Busch M.D. [address] [place] [address] 12-week group completed Social History Tobacco Use Types Packs/Day Years [...] your living situation today? I have a [facility] place to live 09/21/2023 Sex and Gender Information Value Date Recorded Sex Assigned at Female 07/26/2023 12:31 PM CDT Gender Identity Female 07/26/2023 12:31 PM CDT Sexual Orientation Straight 07/26/2023 12 :47 PM CDT documented as of this encounter Plan of Treatment Upcoming Encounters Date Type Department Care Team (Late st Contact Info) Description 04/16/2024 10:30 AM CDT Office Visit Division of Endocrinology in [place], [place] [address] [place] [address] Zeinab Arce M.D. [address] [place] [address] Scheduled Referrals Name Type Priority Associated Diagnoses Order Schedule Endocrinology office visit (clinic) Outpatient Referral Routine Morbid Obesity Body Mass Index 50.0-59.9 Adult (HCC) Expected: 03/06/2024, Expires: 05/04/2025 documented as of this encounter Visit Diagnoses Diagnosis Morbid Obesity Body Mass Index 50.0-59.9 Adult (HCC)- Primary documented in this encounter
--- OUTSIDE RECORDS SUMMARY | 2024-02-26 09:51 | XMS_ITS ---
Author Name Unknown Organization [facility] Address [address] [place] [address] Care Team Providers Care Farm Appraiser Name Role Phone Unavailable Primary Care Provider Unavailabl e Status:Enrolled (Active) Start date:07/26/2023 Enrollment date:07/26/2023 Related social determinants of health:Food Insecurity, Transportation Needs Continued Care and Services Coordination
--- OUTSIDE RECORDS SUMMARY | 2024-02-26 09:51 | XMS_ITS | Clinical Summary ---
Author Name Unknown Organization [facility] Address [address] [place] [address] Care Team Providers Care Parking Enforcer Name Role Phone Unavailable Primary Care Provider Unavailabl e Source Comments Patient records contain information from all sites at [facility]. For routine questions regarding patient records, call [phone] during business hours, M-F 8:00 AM - 5:00 PM Central Time. Record requests for emergency care only can be directed to [phone] at any time.[facility] Allergies Active Allergy Reactions Criticality Noted [...] puffs every 4 (four) hours as needed. Active amLODIPine (NORVASC) 10 mg tablet Take 10 mg by mouth daily. Active busPIRone (BUSPAR) 10 mg tablet Take 5 mg by mouth 2 (two) times a day. 08/16/2023 Active carvediloL (COREG) 6.25 mg tablet Take 6.25 mg by mouth 2 (two) times a day with meals. Active DULoxetine (CYMBALTA) [address] capsule Take 30 mg by mouth daily. Active DULoxetine (CYMBALTA) [address] capsule Take 60 mg by mouth daily. Active furosemide (LASIX) 20 mg tablet Take 20 mg by mouth daily. Active fluticasone propionate (FLONASE ALLERGY RELIEF NASAL) Active LORazepam (ATIVAN) 0.5 mg tablet Take 0.5 mg by mouth as needed. 01/15/2023 Active mirtazapine (REMERON) 7.5 mg tablet Take 7.5 mg by mouth at bedtime. Active nystatin (MYCOSTATIN) 100,000 unit/gram cream Apply 1 Application topically as needed. 01/09/2023 Active omeprazole (PriLOSEC) [address] capsule Take 40 mg by mouth every morning before breakfast. 10/22/2022 Active ondansetron ODT (ZOFRAN-ODT) 4 mg disintegrating tablet Dissolve 4 mg in the mouth as needed. Active rosuvastatin (CRESTOR) 5 mg tablet Take 5 mg by mouth daily. 03/09/2023 Active traMADoL (ULTRAM) 50 mg tablet Take 50 mg by mouth at bedtime. Active zolpidem (AMBIEN) 10 mg tablet Take 10 mg by mouth at bedtime as needed. DECREASING DOSE TO FINISH 01/08/2023 Active UNABLE TO FIND Airselect, short, xlarge length of use 99 months 01/16/2023 Active multivitamin capsule Take 1 capsule by mouth daily. Active Lactobacillus acidophilus capsule Take 1 capsule by mouth daily. Active Active Problems Problem Noted Date Diagnosed Date Hypertension Essential Primary 10/03/2023 Obstructive Sleep Apnea Adult 10/03/2023 Gastroesophageal Reflux Disease 10/03/2023 Fibromyalgia 10/03/2023 Morbid Obesity Body Mass Index 50.0-59.9 Adult 1 12/03/2022 Encounters Date Type Department Care Team Description 01/29/2024 Clinical Communication Division of Endocrinology in [place], [place] [address] [place] [address] Zeinab Kaur M.D. 12-week group completed from Last 3 Months Social History Tobacco [...] your living situation today? I have a [facility] place to live 09/21/2023 Sex and [...] - Inhaled Oxygen Concentration - - Weight 168 kg (371 lb) 01/11/2024 2:05 PM CASING CREW PUSHER Height - - Body Mass Index - - Plan of Treatment Upcoming Encounters Date Type Department Care Team (Late st Contact Info) Description 04/16/2024 10:30 AM CDT Office Visit Division of Endocrinology in [place], [place] [address] [place] [address] Zeinab Arce M.D. [address] [place] [address] Health Maintenance Due Date Last Done Comments [...] this topic Medical Devices Implanted Type Area Clinical Assoc Device Identifier Shelf Expiration Date Model / Serial / Lot Hardware E.G. Pins/Screws/R ods Hardware e.g. pins/screws/ rods Left: Hand Hardware E.G. Pins/Screws/R ods Hardware e.g. pins/screws/ rods Mouth
--- OUTSIDE RECORDS SUMMARY | 2024-02-26 09:51 | XMS_ITS | Referral Summary ---
Author Name Unknown Organization [facility] Address [address] [place] [address] Care Team Providers Care Hvac Technician Name Role Phone Unavailable Primary Care Provider Unavailabl e Source Comments Patient records contain information from all sites at [facility]. For routine questions regarding patient records, call [phone] during business hours, M-F 8:00 AM - 5:00 PM Central Time. Record requests for emergency care only can be directed to [phone] at any time[address] Encounters Date Type Department Care Team Description 01/29/2024 Clinical Communication Division of Endocrinology in [place], [place] [address] [place] [address] Zeinab Kaur M.D. 12-week group completed from Last 3 Months Allergies Active Allergy [...] your living situation today? I have a [facility] place to live 09/21/2023 Sex and [...] 168 kg (371 lb) 01/11/2024 2:05 PM SCENE PAINTER Height - - Body Mass Index - - Plan of Treatment Upcoming Encounters Date Type Department Care Team (Late st Contact Info) Description 04/16/2024 10:30 AM CDT Office Visit Division of Endocrinology in [place], [place] [address] [place] [address] Zeinab Arce M.D. [address] [place] [address] Medical Devices Implanted Type Area Pharmacovigilance Scientist Device Identifier Shelf Expiration Date Model / Serial / Lot Hardware E.G. Pins/Screws/R ods Hardware e.g. pins/screws/ rods Left: Hand Hardware E.G. Pins/Screws/R ods Hardware e.g. pins/screws/ rods Mouth
--- OUTSIDE RECORDS SUMMARY | 2024-02-26 09:51 | XMS_ITS ---
Author Name Unknown Organization [facility] Address [address] [place] [address] Care Team Providers Care Commercial Relationship Manager Name Role Phone Unavailable Unavailable Unavailable Surgery Details Not on file Complications Check Surgery Details section. Procedure Estimated Blood Loss Check Surgery Details section. Procedure Findings Check Surgery Details section. Procedure Specimens Taken Check Surgery Details section.
== END 2024-02-26 09:50 | disposition home or self-care (01) ==
LOC: RAD 09:50
PROVIDERS: PCP Family Medicine; Visit Provider Family Medicine
DX: I34.1 Nonrheumatic mitral (valve) prolapse (principal)
CPT/HCPCS: 93306

== ENCOUNTER 2024-06-13 13:29 | Outpatient (REF) | payer MEDICAID, SELFPAY ==
--- OUTSIDE RECORDS SUMMARY | 2024-06-13 13:35 | XMS_ITS | Encounter Summary ---
Author Organization [facility] Address [address] [place] [address] Care Team Providers Care Batteryman Name Role Phone Unavailable Primary Care Provider Unavailabl e Encounter Details Date Type Department Care Team (Late st Contact Info) Description 05/30/2024 Orders Only Preoperative Evaluation Center in [place], [place] [address] [place] [address] Grabiel Leonard, YSABEL, C.N.P., M.S. [address] [place] [address] Preanesthetic Medical Exam (Primary Dx); Morbid Obesity Body Mass Index 50.0-59.9 Adult (HCC); Gastroesophageal Reflux Disease Social History Tobacco Use Types Packs/Day Years Used Date Smoking Tobacco: Never Passive Smoke Exposure: Past Smokeless Tobacco: Never Alcohol Use Standard Drinks/Week Comments Not Currently 0 (1 standard drink = 0.6 oz pur e alcohol) Rarely have one drink Overall Financial Resource Strain (CARDIA) Answe r [...] living? No 09/21/2023 Nutrition Answer Date Recorded On average, how many serving s of fruits and vegetables do you eat per day (serving size is equal to 1 cup or approximately the size of a tennis ball)? 0-2 09/21/2023 Dental Answer Date Recorded Dental: Regular Dentist No 09/21/20 Employment Answer Date Recorded Employment status Retired 09/21/2023 Housing Stability Answer Date Recorded What is your living situation today? I have a [facility] place to live 09/21/2023 Sex and Gender Information Value Date Recorded Sex Assigned at Female 07/26/2023 12:31 PM CDT Gender Identity Female 07/26/2023 12:31 PM CDT Sexual Orientation Straight 07/26/2023 12 :47 PM CDT documented as of this encounter Plan of Treatment Upcoming Encounters Date Type Department Care Team (Latest Contact Info) Description 06/14/2024 1:00 PM CDT Telemedicine Department of Nutrition and Diabetes Education in [place], [place] [address] [place] [phone] Martha Hollins APRN, C.N.P., M.S.N. [address] [place] [phone] 06/27/2024 2:00 PM CDT Clinical Communication Virtual Review in [place], [place] [address] [place] [address] 07/01/2024 8:00 AM CDT Comprehensive Visit Preoperative Evaluation Center in [place], [place] [address] [place] [phone] Martha Hollins APRN, C.N.P., M.S.N. [address] [place] [phone] 07/01/2024 11:30 AM CDT Appointment Department of Laboratory Medicine and Pathology, [facility], in [place], [place] [address] [place] [phone] Grabiel Leonard APRN, C.N.P., M.S. [address] [place] [phone] 07/01/2024 1:45 PM CDT Comprehensive Visit Division of Metabolic and Abdominal Wall Reconstructive Surgery in [place], [place] [address] [place] [phone] Bobo Valdes M.D. [address] [place] [phone] 07/03/2024 7:05 AM CDT Hospital Encounter Post Anesthesia Care Unit in [place], [place] [address] [place] [phone] Bobo Valdes M.D. [address] [place] [phone] 07/03/2024 7:05 AM CDT - 07/03/2024 11:19 AM CDT Surgery [facility] [address] [place] [phone] Bobo Valdes M.D. [address] [place] [phone] ROBOTIC-ASSISTED DUODENAL SWITCH WITH OR WITHOUT ILEOILEOSTOMY Scheduled Orders Name Type Priority Associated Diagnoses Orde r Schedule CBC without Differential Lab Routine Preanesthetic Medical Exam Morbid Obesity Body Mass Index 50.0-59.9 Adult (HCC) Gastroesophageal Reflux Disease Expected: 06/15/2024, Expires: 08/30/2025 Comprehensive Metabolic Panel Lab Routine Preanesthetic Medical Exam Morbid Obesity Body Mass Index 50.0-59.9 Adult (HCC) Gastroesophageal Reflux Disease 1 Occurrences starting 05/30/2024 until 08/30/2025 Hemoglobin A1c Lab Routine Preanesthetic Medical Exam Morbid Obesity Body Mass Index 50.0-59.9 Adult (HCC) Gastroesophageal Reflux Disease Expected: 05/30/2024, Expires: 08/30/2025 Type and Screen (with Reflex Antibody ID) Lab Routine Preanesthetic Medical Exam Morbid Obesity Body Mass Index 50.0-59.9 Adult (HCC) Gastroesophageal Reflux Disease Expected: 05/30/2024, Expires: 05/07/2025 Scheduled Procedures Name Priority Associated Diagnoses Date/Ti ks ROBOTIC-ASSISTED SINGLE ANASTOMOSIS DUODENO-ILEOSTOMY 07/03/2024 7:05 AM CDT ROBOTIC-ASSISTED REPAIR PARAESOPHAGEAL HERNIA 07/03/2024 7:05 AM CDT documented as of this encounter Visit Diagnoses Diagnosis Preanesthetic Medical Exam- Primary Morbid Obesity Body Mass Index 50.0-59.9 Adult (HCC) Gastroesophageal Reflux Disease documented in this encounter
--- OUTSIDE RECORDS SUMMARY | 2024-06-13 13:35 | XMS_ITS | Encounter Summary ---
Author Organization [facility] Address [address] [place] [address] Care Team Providers Care Supervisor Cutting Department Name Role Phone Unavailable Primary Care Provider Unavailabl e Encounter Details Date Type Department Care Team (Latest Contact Info) Description 03/28/2024 7:30 AM CDT Ancillary Procedure Department of Gastroenterology Social History Tobacco Use Types Packs/Day Years [...] your living situation today? I have a [facility] place to live 09/21/2023 Sex and Gender [...] Department of Nutrition and Diabetes Education in [place], [place] [address] [place] [phone] Martha Hollins APRN, C.N.P., M.S.N. [address] [place] [phone] 06/27/2024 2:00 PM CDT Clinical Communication Virtual Review in [place], [place] 200 [place] [address] 07/01/2024 8:00 AM CDT Comprehensive Visit Preoperative Evaluation Center in [place], [place] [address] [place] [phone] Martha Hollins APRN, C.N.P., M.S.N. [address] [place] [phone] 07/01/2024 11:30 AM CDT Appointment Department of Laboratory Medicine and Pathology, [facility], in [place], [place] [address] [place] [phone] Grabiel Leonard APRN, C.N.P., M.S. [address] [place] [phone] 07/01/2024 1:45 PM CDT Comprehensive Visit Division of Metabolic and Abdominal Wall Reconstructive Surgery in [place], [place] [address] [place] [phone] Bobo Valdes M.D. [address] [place] [phone] 07/03/2024 7:05 AM CDT Hospital Encounter Post Anesthesia Care Unit in [place], [place] [address] [place] [phone] Bobo Valdes M.D. [address] [place] [phone] 07/03/2024 7:05 AM CDT - 07/03/2024 11:19 AM CDT Surgery [facility] MAIN OR [address] [place] [phone] Bobo Valdes M.D. [address] [place] [phone] ROBOTIC-ASSISTED DUODENAL SWITCH WITH OR WITHOUT ILEOILEOSTOMY Scheduled Procedures Name Priority Associated Diagnoses Date/Ti me ROBOTIC-ASSISTED SINGLE ANASTOMOSIS DUODENO-ILEOSTOMY 07/03/2024 7:05 AM CDT ROBOTIC-ASSISTED REPAIR PARAESOPHAGEAL HERNIA 07/03/2024 7:05 AM CDT documented as of this encounter Procedures Procedure Name Priority Date/Time Associated Diagnosis Comments GASTROENTEROLOGY IMAGE EXAM Routine 03/28/2024 7:30 AM CDT documented in this encounter Results * Upper GI endoscopy-Gastroenterology Image Exam (03/28/2024 7:30 AM CDT) 03/28/2024 7:28 AM CDT Narrative [facility] - 03/28/2024 8:34 AM CDT This order has been created and auto-finalized to support the import of images acquired without order. The clinical documentation to support these images can be found on the encounter that produced images. Provider Not In System IMG NON RAD IMAGI NG PROCEDURES [facility] NA documented in this encounter Visit Diagnoses Not on filedocumented in this encounter
--- OUTSIDE RECORDS SUMMARY | 2024-06-13 13:35 | XMS_ITS | Clinical Summary ---
Author Organization [facility] Address [address] [place] [address] Care Team Providers Care Provider Relations Coordinator Name Role Phone Unavailable Primary Care Provider Unavailabl e Source Comments Patient records contain information from all sites at [facility]. For routine questions regarding patient records, call [phone] during business hours, M-F 8:00 AM - 5:00 PM Central Time. Record requests for emergency care only can be directed to [phone] at any time.[facility] Allergies Active Allergy Reactions Criticality Noted [...] 50 mg by mouth at bedtime. Active multivitamin capsule Take 1 capsule by mouth daily. Active Lactobacillus acidophilus capsule Take 1 capsule by mouth daily. Active Active Problems Problem Noted Date Diagnosed Date Primary Osteoarthritis Knee Left 03/11/2024 Deficiency Vitamin D 03/11/2024 Depression 03/11/2024 Hypertension Essential Primary 10/03/2023 Obstructive Sleep Apnea Adult 10/03/2023 Gastroesophageal Reflux Disease 10/03/2023 Fibromyalgia 10/03/2023 Morbid Obesity Body Mass Index 50.0-59.9 Adult 1 12/03/2022 Encounters Date Type Department Care Team Description 05/30/2024 Orders Only Preoperative Evaluation Center in [place], [place] [address] [place] [address] Grabiel Leonard, YSABEL, C.N.P., M.S. Preanesthetic Medical Exam (Primary Dx); Morbid Obesity Body Mass Index 50.0-59.9 Adult (HCC); Gastroesophageal Reflux Disease 05/30/2024 Orders Only Division of Metabolic and Abdominal Wall Reconstructive Surgery in [place], [place] [address] [place] [address] Sindhu Reece, R.N. Morbid Obesity Body Mass Index 50.0-59.9 Adult (HCC) (Primary Dx) 04/22/2024 Clinical Communication Division of Metabolic and Abdominal Wall Reconstructive Surgery in [place], [place] [address] [place] [address] Bobo Valdes M.D. 04/03/2024 2:30 PM CDT Telemedicine Division of Metabolic and Abdominal Wall Reconstructive Surgery in [place], [place] [address] [place] [address] Bobo Valdes M.D. Morbid Obesity Body Mass Index 50.0-59.9 Adult (HCC); Gastroesophageal Reflux Disease 03/28/2024 8:02 AM CDT Anesthesia Event Division of Gastroenterology in [address] [phone] Evelyne Gonzalez Mubarak A, YSABEL, [employer]ER, DNAP 03/28/2024 7:30 AM CDT Ancillary Procedure Department of Gastroenterology 03/28/2024 6:44 AM CDT - 03/28/2024 9:15 AM CDT Hospital Encounter Division of Gastroenterology in [address] [phone] Martha Hollins, YSABEL, C.N.P., M.S.N. Evelyne Gonzalez Morbid Obesity Body Mass Index 50.0-59.9 Adult (HCC); Gastroesophageal Reflux Disease Discharge Disposition: Home or Self Care from Last 3 Months Family History Medical History Relation Name Comments Obesity Brother Jovanni Godboana maria Sleep apnea Brother Jovanni Godboana maria Migraines Daughter Ileana Slater Alcohol abuse Father Harley Godboana maria Anxiety disorder Father Harley Godboana maria Coronary artery disease Father Harley Andres Di ed 2013 Depression Father Harley Godbout Diabetes Father Harley Godbout Hyperlipidemia Father Harley Godbout Hypertension Father Harley Godbout Migraines Father Harley Godbout Obesity Father Harley Godbout Sleep apnea Father Harley Godbout Transient ischemic attack Father Harley Godbout Anxiety disorder Mother Zan Godbout Arthritis Mother Zan Godbout Depression Mother Zan Godbout Diabetes Mother Zan Godbout Hyperlipidemia Mother Zan Godbout Hypertension Mother Zan Godbout Migraines Mother Zan Godbout Obesity Mother Zan Godbout Breast cancer Mother's Sister 1 Zoila Koehler Breast cancer Mother's Sister 2 Noreen Harmno Her da naveed Tamez also. Anxiety disorder Sister Amber Slater Arthritis Sister Amber Slater Depression Sister Amber Slater Migraines Sister Amber Slater Obesity Sister Amber Slater Rheum arthritis Sister Amber Slater Relation Name Status Comments Brother Jovanni Campos Daughter Ileana Slater Father Harley Campos Mother Zan Campos Mother's Sister 1 Zoila Koehler Mother's Sister 2 Noreen Harmon Sister Amber Slater Social History Tobacco Use Types Packs/Day Years Used Date Smoking Tobacco: Never Passive Smoke Exposure: Past Smokeless Tobacco: Never Tobacco Cessation:Counseling Given: Not Answered Alcohol Use Standard Drinks/Week Comments Not Currently [...] your living situation today? [facility] have a [facility] to live 09/21/2023 Sex and Gender Information Value Date Recorded Sex Assigned at Female 07/26/2023 12:31 PM CDT Gender Identity Female 07/26/2023 12:31 PM CDT Sexual Orientation Straight 07/26/2023 12 :47 PM CDT Last Filed Vital Signs Vital Sign Reading Time Taken Comments Blood Pressure 157/91 03/28/2024 8:47 AM CDT Pulse 84 03/28/2024 8:47 AM CDT Temperature 36.4 ??C (97.5 ??F) 03/28/2024 8:26 AM CD T Respiratory Rate 17 03/28/2024 8:47 AM CDT Oxygen Saturation 95% 03/28/2024 8:47 AM CDT Inhaled Oxygen Concentration - - Weight 169 kg (372 lb) 03/28/2024 7:23 AM CDT Height 170.2 cm (5' 7) 03/28/2024 7:23 AM CDT Body Mass Index 58.26 03/28/2024 7:23 AM CDT Plan of Treatment Upcoming Encounters Date Type Department Care Team (Latest Contact Info) Description 06/14/2024 1:00 PM CDT Telemedicine Department of Nutrition and Diabetes Education in [place], [place] [address] [place] [phone] Martha Hollins APRN, C.N.P., M.S.N. [address] [place] [phone] 06/27/2024 2:00 PM CDT Clinical Communication Virtual Review in [place], [place] [address] [place] [address] 07/01/2024 8:00 AM CDT Comprehensive Visit Preoperative Evaluation Center in [place], [place] [address] [place] [phone] Martha Hollins APRN, C.N.P., M.S.N. [address] [place] [phone] 07/01/2024 11:30 AM CDT Appointment Department of Laboratory Medicine and Pathology, [facility], in [place], [place] [address] [place] [phone] Grabiel Leonard APRN, C.N.P., M.S. [address] [place] [phone] 07/01/2024 1:45 PM CDT Comprehensive Visit Division of Metabolic and Abdominal Wall Reconstructive Surgery in [place], [place] [address] [place] [phone] Bobo Valdes M.D. [address] [place] [phone] 07/03/2024 7:05 AM CDT Hospital Encounter Post Anesthesia Care Unit in [place], [place] [address] [place] [phone] Bobo Valdes M.D. [address] [place] [phone] 07/03/2024 7:05 AM CDT - 07/03/2024 11:19 AM CDT Surgery [facility] MAIN OR [address] [place] [phone] Bobo Valdes M.D. [address] [place] [phone] ROBOTIC-ASSISTED DUODENAL SWITCH WITH OR WITHOUT ILEOILEOSTOMY Scheduled Procedures Name Priority Associated Diagnoses Date/Ti me ROBOTIC-ASSISTED SINGLE ANASTOMOSIS DUODENO-ILEOSTOMY 07/03/2024 7:05 AM CDT ROBOTIC-ASSISTED REPAIR PARAESOPHAGEAL HERNIA 07/03/2024 7:05 AM CDT Health Maintenance Due Date Last Done Comments CT Colonography 1965 Cologuard 1965 Colonoscopy 1965 Colorectal Cancer Surveillance 1965 Creatinine Level (Kidney Function Test) 1965 Fasting Glucose for Diabetes Screening 1965 Hepatitis C Screening 1965 Lipid (Cholesterol) Screening 1965 Mammogram 1965 Potassium Level 1965 Sodium Level 1965 Depression Screening (Annual PHQ-2) 11/06/2023 Office Visit for Blood Pressure Check / Re-check 06/07/2024 03/07/2024 Influenza Vaccine (#1) 2024 , 07/20/2023, 07/29/2022, Additional history exists DTaP,Tdap,and Td Vaccines (2 - Td or Tdap) 08/29/2028 08/29/2018 Zoster Vaccines Completed 10/20/2020, 08/06/2020 Hepatitis B Vaccines Completed 11/17/2022, 07/20/2022, 08/03/2015 COVID-19 Vaccine Completed 09/19/2023, , 03/08/2022, Additional history exists Pneumococcal vaccine (0-64 years) Aged Out No longer eligible based on patient's age to complete this topic Medical Devices Implanted Type Area Equine Pharmacology Technician Device Identifier Shelf Expiration Date Model / Serial / Lot Hardware E.G. Pins/Screws/R ods Hardware e.g. pins/screws/ rods Left: Hand Hardware E.G. Pins/Screws/R ods Hardware e.g. pins/screws/ rods Mouth Procedures Procedure Name Priority Date/Time Associated Diagnosis Comments GASTROENTEROLOGY IMAGE EXAM Routine 03/28/2024 7:30 AM CDT UPPER GI ENDOSCOPY Routine 03/28/2024 7: 28 AM CDT Morbid Obesity Body Mass Index 50.0-59.9 Adult (HCC) Gastroesophageal Reflux Disease EGD (ESOPHAGEALGASTRODUODENO SCOPY) Routine 03/28/2024 7:28 AM CDT Morbid Obesity Body Mass Index 50.0-59.9 Adult (HCC) Gastroesophageal Reflux Disease from Last 3 Months Results * Upper GI endoscopy-Gastroenterology Image Exam [...] NON RAD IMAGI NG PROCEDURES [facility] NA * Upper GI Endoscopy (03/28/2024 7:28 AM CDT) 03/28/2024 7:28 AM CDT Impressions [facility] - 03/28/2024 8:26 AM CDT Post-op Diagnoses: ? - Normal esophagus without evidence of erosive esophagitis or Chatterjee's ? esophagus. ? - 3 cm sliding hiatal hernia. ? - Multiple benign fundic gland gastric polyps. No evidence of gastric ? erosions or ulcerations. ? - Normal examined duodenum. Narrative [facility] - 03/28/2024 8:26 AM CDT Isac 6 GI GI Patient Name: Clarisse Campos Date of : 1965 Age: 58 Procedure Date: 03/28/2024 Procedure: ? Upper GI endoscopy Providers: ? Wenceslao Fonseca MD Referring Provider: ?Martha Hollins Pre-op Diagnoses: ?Preoperative assessment for bariatric surgery to ? treat morbid obesity Recommendation: ? - Patient has a contact number available for emergencies. The signs and ? symptoms of potential delayed complications were discussed with the ? patient. Return to normal activities tomorrow. Written discharge ? instructions were provided to the patient. ? - Resume previous diet. ? - Return to referring provider. Findings: ? The examined esophagus was normal. The Z-line was regular at 37 cm from ? the incisors. ? There is no endoscopic evidence of Chatterjee's esophagus or esophagitis in ? the entire esophagus. ? A 3 cm sliding hiatal hernia was present from 37-40 cm from the incisors. ? Multiple benign small sessile fundic gland polyps were found in the ? gastric body. Otherwise normal-appearing gastric mucosa without evidence ? of erosions or ulcerations. ? The examined duodenum was normal. Procedural Details: ? The patient was seen, evaluated, history reviewed, airway and heart-lung ? exams were performed by licensed provider and were satisfactory for ? planned level of sedation care. ? The risks, benefits and alternatives for the procedure and sedation were ? discussed and informed consent was obtained. A procedural pause was ? conducted in the presence of assisting personnel to verify the correct ? patient identity and procedure to be performed. Throughout the ? procedure, the patient's blood pressure, pulse, and oxygen saturations ? were monitored continuously. The Gastroscope was introduced under direct ? vision through the mouth, and advanced to the second part of duodenum. ? The upper GI endoscopy was accomplished without difficulty. The patient ? tolerated the procedure well. Estimated Blood Loss: ?None. Complications: ? None. Sedation: ? Anesthesia was administered by an anesthesia professional. The following ? parameters were monitored: oxygen saturation, heart rate, blood ? pressure, respiratory rate, EKG, adequacy of pulmonary ventilation, and ? response to care. Attending Participation: I personally performed the entire procedure. Wenceslao Fonseca MD 03/28/2024 8:26:01 AM This report has been signed electronically. Number of Addenda: 0 Martha Hollins APRN, C.N.P., M.S.N. G I PROCEDURE ORDERABLES JESSICA REYNOLDS from Last 3 Months
--- OUTSIDE RECORDS SUMMARY | 2024-06-13 13:35 | XMS_ITS | Referral Summary ---
Author Organization [facility] Address [address] [place] [phone] Care Team Providers Care Activity Therapist Name Role Phone Unavailable Primary Care Provider Unavailabl e Source Comments Patient records contain information from all sites at [facility]. For routine questions regarding patient records, call [phone] during business hours, M-F 8:00 AM - 5:00 PM Central Time. Record requests for emergency care only can be directed to [phone] at any time.[facility] Encounters Date Type Department Care Team Description 05/30/2024 Orders Only Preoperative Evaluation Center in [place], [place] [address] [place] [address] Grabiel Leonard, YSABEL, C.N.P., M.S. Preanesthetic Medical Exam (Primary Dx); Morbid Obesity Body Mass Index 50.0-59.9 Adult (HCC); Gastroesophageal Reflux Disease 05/30/2024 Orders Only Division of Metabolic and Abdominal Wall Reconstructive Surgery in [place], [place] [address] [place] [phone] Sindhu Reece, Jose Morbid Obesity Body Mass Index 50.0-59.9 Adult (HCC) (Primary Dx) 04/22/2024 Clinical Communication Division of Metabolic and Abdominal Wall Reconstructive Surgery in [place], [place] [address] [place] [phone] Bobo Valdes M.D. 04/03/2024 2:30 PM CDT Telemedicine Division of Metabolic and Abdominal Wall Reconstructive Surgery in [place], [place] [address] [place] [phone] Bobo Valdes M.D. Morbid Obesity Body Mass Index 50.0-59.9 Adult (HCC); Gastroesophageal Reflux Disease 03/28/2024 7:30 AM CDT Ancillary Procedure Department of Gastroenterology 03/28/2024 8:02 AM CDT Anesthesia Event Division of Gastroenterology in [place], [place] [address] [place] [phone] Evelyne Gonzalez Mubarak A, APRN, ELBERT, DNAP 03/28/2024 6:44 AM CDT - 03/28/2024 9:15 AM CDT Hospital Encounter Division of Gastroenterology in [address] [phone] Martha Hollins, YSABEL, C.N.P., M.S.N. Evelyne Gonzalez Morbid Obesity Body Mass Index 50.0-59.9 Adult (HCC); Gastroesophageal Reflux Disease Discharge Disposition: Home or Self Care from Last 3 Months Allergies Active Allergy [...] your living situation today? I have a [facility] place to live 09/21/2023 Sex and [...] Department of Nutrition and Diabetes Education in [place], [place] [address] [place] [phone] Martha Hollins APRN, C.NRoro., M.S.N. [address] [place] [phone] 06/27/2024 2:00 PM CDT Clinical Communication Virtual Review in [place], [place] 200 [place] [phone] 07/01/2024 8:00 AM CDT Comprehensive Visit Preoperative Evaluation Center in [place], [place] [address] [place] [phone] Martha Hollins APRN, C.N.P., M.S.N. [address] [place] [phone] 07/01/2024 11:30 AM CDT Appointment Department of Laboratory Medicine and Pathology, [facility] in [place], [place] [address] [place] [phone] Grabiel Leonard, YSABEL, C.N.P., M.S. [address] [place] [phone] 07/01/2024 1:45 PM CDT Comprehensive Visit Division of Metabolic and Abdominal Wall Reconstructive Surgery in [place], [place] [address] [place] [phone] Bobo Valdes M.D. [address] [place] [phone] 07/03/2024 7:05 AM CDT Hospital Encounter Post Anesthesia Care Unit in [place], [place] [address] [place] [phone] Bobo Valdes M.D. [address] [place] [phone] 07/03/2024 7:05 AM CDT - 07/03/2024 11:19 AM CDT Surgery [facility] MAIN OR [address] [place] [phone] Bobo Valdes M.D. [address] [place] [address] ROBOTIC-ASSISTED DUODENAL SWITCH WITH OR WITHOUT ILEOILEOSTOMY Scheduled Procedures Name Priority Associated Diagnoses Date/Ti me ROBOTIC-ASSISTED SINGLE ANASTOMOSIS DUODENO-ILEOSTOMY 07/03/2024 7:05 AM CDT ROBOTIC-ASSISTED REPAIR PARAESOPHAGEAL HERNIA 07/03/2024 7:05 AM CDT Medical Devices Implanted Type Area Keno Attendant Device Identifier Shelf Expiration Date Model / [...] AM CDT) 03/28/2024 7:28 AM CDT Impressions [facility] - 03/28/2024 8:26 AM CDT Post-op Diagnoses: ? - Normal esophagus without evidence of erosive esophagitis or Chatterjee's ? esophagus. ? - 3 cm sliding hiatal hernia. ? - Multiple benign fundic gland gastric polyps. No evidence of gastric ? erosions or ulcerations. ? - Normal examined duodenum. Narrative [facility] - 03/28/2024 8:26 AM CDT Isac 6 [...] electronically. Number of Addenda: 0 Martha Hollins APRN C.N.P., M.S.N. G I PROCEDURE ORDERABLES [facility] NA from Last 3 Months
--- OUTSIDE RECORDS SUMMARY | 2024-06-13 13:35 | XMS_ITS | Encounter Summary ---
Author Organization [facility] Address [address] [place] [address] Care Team Providers Care Animal Caretaker Name Role Phone Unavailable Primary Care Provider Unavailabl e Reason for Visit * Outpatient (Routine) - Closed Specialty Diagnoses / Procedures Referred By Gilbert lui Referred To Contact General Surgery Diagnoses Morbid Obesity Body Mass Index 50.0-59.9 Adult (HCC) Gastroesophageal Reflux Disease Martha Hollins APRN, C.N.P., M.S.N. [address] [place] [phone] [facility] Referral ID Status Reason Start Date Expiration Date Visits Re quested Visits Authorized [id number] Closed 03/11/2024 09/10/2025 1 1 Encounter Details Date Type Department Care Team (Latest Contact Info) Description 04/03/2024 2:30 PM CDT Telemedicine Division of Metabolic and Abdominal Wall Reconstructive Surgery in [place], [place] [address] [place] [phone] Bobo Valdes M.D. [address] [place] [phone] Morbid Obesity Body Mass Index 50.0-59.9 Adult [...] your living situation today? I have a [facility] place to live 09/21/2023 Sex and Gender Information Value Date Recorded Sex Assigned at Female 07/26/2023 12:31 PM CDT Gender Identity Female 07/26/2023 12:31 PM CDT Sexual Orientation Straight 07/26/2023 12 :47 PM CDT documented as of this encounter Consult Notes * Stefany Jason M.D. - 04/03/2024 2:30 PM CDT SUBJECTIVE CHIEF COMPLAINT / REASON FOR VISIT Clarisse Campos is a 58 y.o. female presenting in referral from Martha Hollins APRN* for consideration for bariatric surgery. HISTORY OF PRESENT ILLNESS Ms. Campos presents to the clinic for evaluation to undergo bariatric surgery. Her current BMI is 59. She states that she has thought about undergoing surgery to achieve weight loss for over 10 years, and now is confident that she will be able to follow the recommendations entailed with surgery. Her associated comorbidities are GERD, LESLEY on CPAP, HTN, fibromyalgia, depression, and osteoarthritis. Her past surgical history is significant for hysterectomy and appendectomy through an open midlineincision. She does not take any blood thinners or steroids. She is a non-smoker. On most recent echo, EF was 60-65%. EGD: normal esophagus, 3 cm sliding hiatal hernia, and multiple benign fundic gland gastric polyps OBJECTIVE PHYSICAL EXAM Video visit ASSESSMENT / PLAN #1 Morbid Obesity Body Mass Index 50.0-59.9 Adult ([facility]) #2 Gastroesophageal Reflux Disease Clarisse Campos is a very pleasant 58 y.o. female that presents for bariatric surgery evaluation. Please see Dr. Valdes's addendum for further details. Stefany Jason MD General Surgery PGY-1 Associated attestation - Bobo Valdes M.D. - 04/04/2024 10:26 AM CDT I saw and evaluated the patient, participating in the benjamin portions of the service. I reviewed the resident/fellow???s note. I agree with the resident/fellow???s findings. ASSESSMENT / PLAN I discussed with the patient her options again. This includes sleeve, bypass, and duodenal switch. She wants to proceed with duodenal switch knowing that she has higher BMI and sleeve and bypass may not give the appropriate weight loss for her to regain her life back. But with the traditional duodenal switch, she has concerns about the possible nutritional deficiencies that can happen ferry terminal agent. Additionally, she has a high BMI, and most of her weight is in the lower abdomen. This can make things difficult for the ileo-ileal anastomosis tailoring. This makes her a candidate to proceed with a duodenal ileostomy as well as sleeving the stomach, and then due to the anticipated difficulty of pro ceeding with the ileoileostomy, then we can do it as a 2-step procedure, if ever needed. Also, thisway, especially with her concerns, this will address some of the nutritional deficiency concerns she has. Again, proceeding this way will also shorten the operative time and hopefully try to avoid complications including but not limited to blood clots in this patient. Therefore, again, we will be proceeding with the duodenal switch with or without ileoileostomy. This was discussed totally with the patient. She totally understands. In fact, that is her preference to hopefully try to avoid complications. We discussed that again there is chance of bleeding, infection, and an anastomotic leak. There is also a chance of blood clots. There is also chance of dumping syndrome as well as ulcers. Chance of dumping and ulcers are lower with the duodenal switch rather than the Tio-en-Y gastric bypass. That said, there is always a chance of reflux. The patient totallyunderstands. She wants to proceed. The patient totally understands and wishes to proceed. Planning on duodenal switch (including a sleeved stomach with duodenoileostomy with or without ileoileostomy). Please reach out to me for any questions. I would be more than happy to discuss this case personally and explain our rationale. documented in this encounter Plan of Treatment Upcoming Encounters Date Type Department Care Team (Latest Contact Info) Description 06/14/2024 1:00 PM CDT Telemedicine Department of Nutrition and Diabetes Education in [address] [phone] Martha Hollins APRN, C.N.P., M.S.N. [address] [place] [phone] 06/27/2024 2:00 PM CDT Clinical Communication Virtual Review in [place], [place] 200 [place] [phone] 07/01/2024 8:00 AM CDT Comprehensive Visit Preoperative Evaluation Center in [address] [phone] Martha Hollins APRN, C.N.P., M.S.N. [address] [place] [phone] 07/01/2024 11:30 AM CDT Appointment Department of Laboratory Medicine and Pathology, [facility], in [place], [place] [address] [place] [phone] Grabiel Leonard, YSABEL, C.N.P., M.S. [address] [place] [phone] 07/01/2024 1:45 PM CDT Comprehensive Visit Division of Metabolic and Abdominal Wall Reconstructive Surgery in [place], [place] [address] [place] [phone] Bobo Valdes M.D. [address] [place] [phone] 07/03/2024 7:05 AM CDT Hospital Encounter Post Anesthesia Care Unit in [place], [place] [address] [place] [phone] Bobo Valdes M.D. [address] [place] [phone] 07/03/2024 7:05 AM CDT - 07/03/2024 11:19 AM CDT Surgery [facility] OR [address] [place] [phone] Bobo Valdes M.D. [address] [place] [phone] ROBOTIC-ASSISTED DUODENAL SWITCH WITH OR WITHOUT ILEOILEOSTOMY Scheduled Procedures Name Priority Associated Diagnoses Date/Ti ma ROBOTIC-ASSISTED SINGLE ANASTOMOSIS DUODENO-ILEOSTOMY 07/03/2024 7:05 AM CDT ROBOTIC-ASSISTED REPAIR PARAESOPHAGEAL HERNIA 07/03/2024 7:05 AM CDT documented as of this encounter Visit Diagnoses Diagnosis Morbid Obesity Body Mass Index 50.0-59.9 Adult (HCC) Gastroesophageal Reflux Disease documented in this encounter
--- OUTSIDE RECORDS SUMMARY | 2024-06-13 13:35 | XMS_ITS | Encounter Summary ---
Author Organization [facility] Address [address] [place] [id number] Care Team Providers Care Medical Fee Clerk Name Role Phone Unavailable Primary Care Provider Unavailabl e Reason for Referral * Outpatient (Routine) - Authorized Specialty Diagnoses / Procedures Referred By Gilbert t Referred To Contact Anesthesiology Diagnoses Morbid Obesity Body Mass Index 50.0-59.9 Adult (HCC) Martha Hollins APRN, C.NRoro., M.S.N. [address] [place] [phone] [facility] Referral ID Status Reason Start Date Expiration Date V isits Requested Visits Authorized [id number] Authorized 05/30/2024 11/29/2025 1 1 Encounter Details Date Type Department Care Team (Late st Contact Info) Description 05/30/2024 Orders Only Division of Metabolic and Abdominal Wall Reconstructive Surgery in [place], [place] [address] [place] [phone] Sindhu Reece, R.NCliff [address] [place] [phone] Morbid Obesity Body Mass Index 50.0-59.9 Adult [...] Department of Nutrition and Diabetes Education in [place], [place] [address] [place] [phone] Martha Hollins, Jacqueline GRADY, M.S.N. [address] [place] [phone] 06/27/2024 2:00 PM CDT Clinical Communication Virtual Review in [place], [place] 200 [place] [phone] 07/01/2024 8:00 AM CDT Comprehensive Visit Preoperative Evaluation Center in [place], [place] [address] [place] [phone] Martha Hollins APRN, C.N.P., M.S.N. [address] [place] [phone] 07/01/2024 11:30 AM CDT Appointment Department of Laboratory Medicine and Pathology, [facility], in [place], [place] [address] [place] [phone] Grabiel Leonard, Mic GRADY., M.S. [address] [place] [phone] 07/01/2024 1:45 PM CDT Comprehensive Visit Division of Metabolic and Abdominal Wall Reconstructive Surgery in [place], [place] [address] [place] [phone] Bobo Valdes M.D. [address] [place] [phone] 07/03/2024 7:05 AM CDT Hospital Encounter Post Anesthesia Care Unit in [place] [id number] [place] [phone] Bobo Valdes M.D. [address] [place] [phone] 07/03/2024 7:05 AM CDT - 07/03/2024 11:19 AM CDT Surgery [facility] [address] [place] [phone] Bobo Valdes M.D. [address] [place] [phone] ROBOTIC-ASSISTED DUODENAL SWITCH WITH OR WITHOUT ILEOILEOSTOMY Scheduled Procedures Name Priority Associated Diagnoses Date/Ti me ROBOTIC-ASSISTED SINGLE ANASTOMOSIS DUODENO-ILEOSTOMY 07/03/2024 7:05 AM CDT ROBOTIC-ASSISTED REPAIR PARAESOPHAGEAL HERNIA 07/03/2024 7:05 AM CDT Scheduled Referrals Name Type Priority Associated Diagnoses Order Schedule Preoperative Evaluation EMILY consult (clinic) Outpatient Referral Routine Morbid Obesity Body Mass Index 50.0-59.9 Adult (HCC) 1 Occurrences starting 05/30/2024 until 08/30/2025 documented as of this encounter Visit Diagnoses Diagnosis Morbid Obesity Body Mass Index 50.0-59.9 Adult (HCC)- Primary documented in this encounter
--- OUTSIDE RECORDS SUMMARY | 2024-06-13 13:35 | XMS_ITS ---
Author Organization [facility] Address [address] [place] [address] Care Team Providers Care Electronic Assembler Name Role Phone Unavailable Unavailable Unavailable Surgery Details Not on file Complications Check Surgery Details section. Procedure Estimated Blood Loss Check Surgery Details section. Procedure Findings Check Surgery Details section. Procedure Specimens Taken Check Surgery Details section.
--- OUTSIDE RECORDS SUMMARY | 2024-06-13 13:35 | XMS_ITS | Encounter Summary ---
Author Organization [facility] Address [address] [place] [address] Care Team Providers Care Microsoft Developer Name Role Phone Unavailable Primary Care Provider Unavailabl e Encounter Details Date Type Department Care Team (Latest Contact Info) Description 04/22/2024 Clinical Communication Division of Metabolic and Abdominal Wall Reconstructive Surgery in [place], [place] [address] [place] [phone] Bobo Valdes M.D. [address] [place] [phone] Social History Tobacco Use Types Packs/Day Years [...] your living situation today? I have a [facility] place to live 09/21/2023 Sex and [...] Department of Nutrition and Diabetes Education in [place], [place] [address] [place] [phone] Martha Hollins APRN, C.N.P., M.S.N. [address] [place] [phone] 06/27/2024 2:00 PM CDT Clinical Communication Virtual Review in [place], [place] [address] [place] [phone] 07/01/2024 8:00 AM CDT Comprehensive Visit Preoperative Evaluation Center in [place], [place] [address] [place] [phone] Martha Hollins APRN, C.N.P., M.S.N. [address] [place] [phone] 07/01/2024 11:30 AM CDT Appointment Department of Laboratory Medicine and Pathology, [facility], in [place], [place] [address] [place] [phone] Grabiel Leonard, YSABEL, C.N.P., M.S. [address] [place] [phone] 07/01/2024 1:45 PM CDT Comprehensive Visit Division of Metabolic and Abdominal Wall Reconstructive Surgery in [place], [place] [address] [place] [phone] Bobo Valdes M.D. [address] [place] [phone] 07/03/2024 7:05 AM CDT Hospital Encounter Post Anesthesia Care Unit in [place], [place] [address] [place] [phone] Bobo Valdes M.D. [address] [place] [phone] 07/03/2024 7:05 AM CDT - 07/03/2024 11:19 AM CDT Surgery [facility] OR [address] [place] [phone] Bobo Valdes M.D. [address] [place] [phone] ROBOTIC-ASSISTED DUODENAL SWITCH WITH OR WITHOUT ILEOILEOSTOMY Scheduled Procedures Name Priority Associated Diagnoses Date/Ti nc ROBOTIC-ASSISTED SINGLE ANASTOMOSIS DUODENO-ILEOSTOMY 07/03/2024 7:05 AM CDT ROBOTIC-ASSISTED REPAIR PARAESOPHAGEAL HERNIA 07/03/2024 7:05 AM CDT documented as of this encounter Visit Diagnoses Not on filedocumented in this encounter
--- OUTSIDE RECORDS SUMMARY | 2024-06-13 13:36 | XMS_ITS | Encounter Summary ---
Author Organization [facility] Address [address] [place] [address] Care Team Providers Care Sawyer Cork Slabs Name Role Phone Unavailable Primary Care Provider Unavailabl e Reason for Referral * Outpatient (Routine) - Closed Specialty Diagnoses / Procedures Referred By Contac t Referred To Contact General Surgery Diagnoses Morbid Obesity Body Mass Index 50.0-59.9 Adult (HCC) Gastroesophageal Reflux Disease Martha Hollins APRN C.N.P., M.S.N. [address] [place] [phone] [facility] Referral ID Status Reason Start Date Expiration Date Visits Re quested Visits Authorized [id number] Closed 03/11/2024 09/10/2025 1 1 Scheduling Instructions Keisha to see in person or video- Gunjan can override * Outpatient (Routine) - Closed Specialty Diagnoses / Procedures Referred By Contac t Referred To Contact Diagnoses Morbid Obesity Body Mass Index 50.0-59.9 Adult (HCC) Gastroesophageal Reflux Disease Procedures EGD (EsophagealGastroDuodenoscopy ) Martha Hollins APRN C.N.P., M.S.N. [address] [place] [phone] [facility] Referral ID Status Reason Start Date Expiration Date Visits Re quested Visits Authorized [id number] Closed 03/11/2024 03/11/2025 1 1 Reason for Visit * Outpatient (Routine) - Closed Specialty Diagnoses / Procedures Referred By Gilbert lui Referred To Contact General Surgery Diagnoses Morbid Obesity Body Mass Index 50.0-59.9 Adult (HCC) Zeinab Acre M.D. [address] [place] [address] [facility] Referral ID Status Reason Start Date Expiration Date Visits Re quested Visits Authorized [id number] Closed 03/07/2024 09/06/2025 1 1 Encounter Details Date Type Department Care Team (Latest Contact Info) Description 03/11/2024 9:00 AM CDT Telemedicine Division of Metabolic and Abdominal Wall Reconstructive Surgery in [place], [place] [address] [place] [phone] Martha Hollins APRN, C.N.Amelia., M.S.N. [address] [place] [phone] Morbid Obesity Body Mass Index 50.0-59.9 Adult ([facility]) (Primary Dx); Obstructive Sleep Apnea Adult; Gastroesophageal Reflux Disease; Hypertension Essential Primary; Primary Osteoarthritis Knee Left; Fibromyalgia; Depression; Deficiency Vitamin D Social History Tobacco Use Types Packs/Day Years Used Date Smoking Tobacco: Never Passive Smoke Exposure: Past Smokeless Tobacco: Never Tobacco Cessation:Counseling Given: Not Answered Alcohol Use Standard Drinks/Week Comments Not Currently 0 (1 standard drink = 0.6 oz pur e alcohol) Overall Financial Resource Strain (CARDIA) Answe r [...] your living situation today? I have a [facility] place to live 09/21/2023 Sex and Gender Information Value Date Recorded Sex Assigned at Female 07/26/2023 12:31 PM CDT Gender Identity Female 07/26/2023 12:31 PM CDT Sexual Orientation Straight 07/26/2023 12 :47 PM CDT documented as of this encounter Last Filed Vital Signs Vital Sign Reading Time Taken Comments Blood Pressure - - Pulse - - Temperature - - Respiratory Rate - - Oxygen Saturation - - Inhaled Oxygen Concentration - - Weight 170 kg (374 lb) 03/11/2024 9:12 AM CDT Height - - Body Mass Index 59.4 03/07/2024 11:19 AM CDT documented in this encounter Consult Notes * Martha Hollins APRN, C.N.P., M.S.N. - 03/11/2024 9:00 AM CDT SUBJECTIVE REASON FOR CONSULT Clarisse Campos is a 58 y.o. female who presents for evaluation of medically complicated morbid obesity related to caloric expenditure mismatch. BMI 59, considering bariatric surgery. She was referred by Zeinab Arce M.D.. Consult conducted via real-time audio/video technology by Martha Hollins APRN, C.N.P., M.S.N. in [facility] to the patient in Patient's Home HISTORY OF PRESENT ILLNESS Ms. Campos is a very pleasant 58-year-old female from [facility]. She has a long history of medically complicated obesity and recidivism to attempts at weight loss through diet and exercise. Despite her attempts she weighs 170 kg and is 169 cm tall with a body massindex of 59. She carries the weight-related comorbidities of obstructive sleep apnea treated with CPAP, GERD- takes omeprazole 40 mg daily before bed and has no breakthrough symptoms, hypertension, fibromyalgia, depression, osteoarthritis, vitamin D Deficiency and fibromyalgia. ECHO 02/26/24: Final Impressions: 1. Technically limited exam. 2. The mitral valve not well seen. No obvious leaflet prolapse. Cyvm-co-ivraldcz mitral regurgitation. Regurgitant jet is central [dose not support posterior MVP as it was suggested on prior Echo]. 3. LVEF estimate 60-65%. Normal LV size and wall thickness. 4. Normal RV size and global systolic function. 5. Normal RAP estimate. Only abdominal surgery was hysterectomy with appendectomy via midline incision from umbilicus to pubic symphysis. The patient's past surgical history includes Past Surgical History: Procedure Laterality Date APPENDECTOMY 2003 with hystrectomy HYSTERECTOMY 2003 Complete hysterectomy via midline Please see prior notes from Endocrinology, Nutrition, and Psychology for further details on her weight and nutritional history to include prior attempts at weight loss, weight-related comorbidities, and weight loss records. Ms. Campos has heartburn but this is well controlled with omeprazole 40 mg daily. She denies any history of ulcers and hiatal hernia. She has not had an EGD, upper GI in the past. She is up to date on colonoscopy. She describes her bowel movements as normal. She does not use tobacco, alcohol, illicit drugs, carbonated beverages, caffeine. She notes no use of NSAIDS. She states if she needed to avoid NSAIDs for the rest of her life, she would be able to do so. She denies taking any steroids or immunomodulators. She does not take any blood thinners. She denies a prior history of bleeding or clotting disorders, or problems with anesthesia in the past. Ms. Campos has met all appropriate criteria with the Bariatric Surgical Team. A multidisciplinary evaluation has indicated no contraindications to surgery. The following portions of the patient's history were reviewed and updated as appropriate: allergies, current medications, family history, medical history, social history, surgical history, and problem list. OBJECTIVE PHYSICAL EXAM General appearance: alert, oriented, and no acute distress. Abdomen: Deferred due to video visit however patient has well-healed incision from umbilicus to pubic symphysis per her report from hysterectomy. Respiratory: Nonlabored breathing ASSESSMENT / PLAN #1 Morbid Obesity Body Mass Index 50.0-59.9 Adult (HCC) #2 Obstructive Sleep Apnea Adult #3 Gastroesophageal Reflux Disease #4 Hypertension Essential Primary #5 Primary Osteoarthritis Knee Left #6 Fibromyalgia #7 Depression #8 Deficiency Vitamin D Ms. Campos appears to be a good candidate for bariatric surgery. She has a number of obesity-related comorbidities that will improve with surgical weight loss. The various procedures were presented to her, and she is interested in the Tio-en-Y gastric bypass versus the duodenal switch with or without ileo ileostomy. Prior to moving forward, she will complete an upper endoscopy to rule out esophagitis, Chatterjee's, Hpylori or gastric ulcers. She will then meet with Dr. Valdes for further discussion of best surgical option. Of note, patient was originally scheduled for EGD on May 10, 2024. I am working on expediting this followed by visit with Dr. Valdes either in person or via video if not the same day as EGD. I will not request prior written authorization with Dr. Valdes for a bariatric surgery until the above has been completed. Indication is obesity. Once prior written authorization has been obtained, Ms. Campos will return for consultation with Dr. Valdes, and will proceed to the Preoperative Clinicas indicated, and consult with the dietitian to review the immediate postoperative diet. I have discussed the risks and benefits of surgical intervention to include the potential for bleeding, infection, anastomotic leaks, deep vein thrombosis with potential for pulmonary emboli, and . I have also discussed the short- and long-term complications as delineated in the Bariatric Surgery pamphlet (JF9759). I have provided a copy of Medications Following Tio-en-Y Bariatric Surgery (AV6865) to review the supplements which are recommended postoperatively. Ms. Campos has a copy of both pamphlets. I reviewed that nonsteroidal anti-inflammatories, Lau inhibitors, and aspirin and aspirin-containing products would be contraindicated for the remainder of her lifetime following a Tio-en-Y gastric bypass. I reviewed the need for lifetime complete multivitamin, vitamin D, vitamin B12, and calcium supplements postoperatively. Also reviewed that weight trend must be stable or trending downward in the preoperative period, or surgery could be postponed. Risk, benefits and alternatives were discussed with the Ms. Campos. She appears to understand, asking appropriate questions, and wishes to proceed. Addendum EGD completed reveals: Post-op Diagnoses: - Normal esophagus without evidence of erosive esophagitis or Chatterjee's esophagus. - 3 cm sliding hiatal hernia. - Multiple benign fundic gland gastric polyps. No evidence of gastric erosions or ulcerations. - Normal examined duodenum. Patient will meet with Dr. Valdes tomorrow to discuss best surgical option. documented in this encounter Plan of Treatment Upcoming Encounters Date Type Department Care Team (Latest Contact Info) Description 06/14/2024 1:00 PM CDT Telemedicine Department of Nutrition and Diabetes Education in [address] [phone] Martha Hollins APRN, C.N.P., M.S.N. [address] [place] [phone] 06/27/2024 2:00 PM CDT Clinical Communication Virtual Review in [place], [place] 200 [place] [phone] 07/01/2024 8:00 AM CDT Comprehensive Visit Preoperative Evaluation Center in [address] [phone] Martha Hollins APRN, C.N.P., M.S.N. [address] [place] [phone] 07/01/2024 11:30 AM CDT Appointment Department of Laboratory Medicine and Pathology, [facility] in [place], [place] [address] [place] [phone] Grabiel Leonard, YSABEL, C.N.P., M.S. [address] [place] [phone] 07/01/2024 1:45 PM CDT Comprehensive Visit Division of Metabolic and Abdominal Wall Reconstructive Surgery in [place], [place] [address] [place] [phone] Bobo Valdes M.D. [address] [place] [phone] 07/03/2024 7:05 AM CDT Hospital Encounter Post Anesthesia Care Unit in [place], [place] [address] [place] [phone] Bobo Valdes M.D. [address] [place] [phone] 07/03/2024 7:05 AM CDT - 07/03/2024 11:19 AM CDT Surgery [facility] [address] [place] [phone] Bobo Valdes M.D. [address] [place] [phone] ROBOTIC-ASSISTED DUODENAL SWITCH WITH OR WITHOUT ILEOILEOSTOMY Scheduled Procedures Name Priority Associated Diagnoses Date/Ti me ROBOTIC-ASSISTED SINGLE ANASTOMOSIS DUODENO-ILEOSTOMY 07/03/2024 7:05 AM CDT ROBOTIC-ASSISTED REPAIR PARAESOPHAGEAL HERNIA 07/03/2024 7:05 AM CDT Scheduled Referrals Name Type Priority Associated Diagnoses Orde r Schedule General Surgery - Bariatric consult (clinic) Outpatient Referral Routine Morbid Obesity Body Mass Index 50.0-59.9 Adult (HCC) Gastroesophageal Reflux Disease Expected: 03/13/2024, Expires: 06/11/2025 documented as of this encounter Visit Diagnoses Diagnosis Morbid Obesity Body Mass Index 50.0-59.9 Adult (HCC)- Primary Obstructive Sleep Apnea Adult Gastroesophageal Reflux Disease Hypertension Essential Primary Primary Osteoarthritis Knee Left Fibromyalgia Depression Deficiency Vitamin D documented in this encounter
--- OUTSIDE RECORDS SUMMARY | 2024-06-13 13:36 | XMS_ITS | Encounter Summary ---
Author Organization [facility] Address [address] [place] [address] Care Team Providers Care Field Counsel Name Role Phone Unavailable Primary Care Provider Unavailabl e Reason for Referral * Outpatient (Routine) - Closed Specialty Diagnoses / Procedures Referred By Contac t Referred To Contact Diagnoses Morbid Obesity Body Mass Index 50.0-59.9 Adult (HCC) Gastroesophageal Reflux Disease Procedures EGD (EsophagealGastroDuodenoscopy ) Martha Hollins APRN C.N.P., M.S.N. [address] [place] [phone] [facility] Referral ID Status Reason Start Date Expiration Date Visits Re quested Visits Authorized [id number] Closed 03/11/2024 03/11/2025 1 1 Reason for Visit * Outpatient (Routine) - Closed Specialty Diagnoses / Procedures Referred By Contac t Referred To Contact Diagnoses Morbid Obesity Body Mass Index 50.0-59.9 Adult (HCC) Gastroesophageal Reflux Disease Procedures EGD (EsophagealGastroDuodenoscopy ) Martha Hollins APRN C.N.P., M.S.N. [address] [place] [phone] [facility] Referral ID Status Reason Start Date Expiration Date Visits Re quested Visits Authorized [id number] Closed 03/11/2024 03/11/2025 1 1 Encounter Details Date Type Department Care Team (Latest Contact Info) Description 03/28/2024 6:44 AM CDT - 03/28/2024 9:15 AM CDT Hospital Encounter Division of Gastroenterology in [place], [place] [address] [place] [phone] Martha Hollins, YSABEL, C.N.P., M.S.N. [address] [place] [phone] Evelyne Gonzalez [address] [place] [phone] Morbid Obesity Body Mass Index 50.0-59.9 Adult (HCC); Gastroesophageal Reflux Disease Discharge Disposition: Home or Self Care Social History Tobacco Use Types Packs/Day Years [...] your living situation today? I have a [facility] place to live 09/21/2023 Sex and [...] Mass Index 58.26 03/28/2024 7:23 AM CDT documented in this encounter Medications at Time of Discharge Medication Sig Dispensed Refills Start Date End Date ondansetron ODT (ZOFRAN-ODT) 4 mg disintegrating tablet Dissolve 4 mg in the mouth as needed. traMADoL (ULTRAM) 50 mg tablet Take 50 mg by mouth at bedtime. amLODIPine (NORVASC) 10 mg tablet Take 10 mg by mouth daily. busPIRone (BUSPAR) 10 mg tablet Take 5 mg by mouth 2 (two) times a day. 08/16/2023 carvediloL (COREG) 6.25 mg tablet Take 6.25 mg by mouth 2 (two) times a day with meals. DULoxetine (CYMBALTA) [address] capsule Take 30 mg by mouth daily. DULoxetine (CYMBALTA) [address] capsule Take 60 mg by mouth daily. fluticasone propionate (FLONASE ALLERGY RELIEF NASAL) furosemide (LASIX) 20 mg tablet Take 20 mg by mouth daily. Lactobacillus acidophilus capsule Take 1 capsule by mouth daily. LORazepam (ATIVAN) 0.5 mg tablet Take 0.5 mg by mouth as needed. 01/15/2023 mirtazapine (REMERON) 7.5 mg tablet Take 7.5 mg by mouth at bedtime. multivitamin capsule Take 1 capsule by mouth daily. nystatin (MYCOSTATIN) 100,000 unit/gram cream Apply 1 Application topically as needed. 01/09/2023 omeprazole (PriLOSEC) [address] capsule Take 40 mg by mouth every morning before breakfast. 10/22/2022 rosuvastatin (CRESTOR) 5 mg tablet Take 5 mg by mouth daily. 03/09/2023 Ventolin HFA 90 mcg/actuation inhaler Inhale 2 puffs every 4 (four) hours as needed. documented as of this encounter Plan of Treatment Upcoming Encounters Date Type Department Care Team (Latest Contact Info) Description 06/14/2024 1:00 PM CDT Telemedicine Department of Nutrition and Diabetes Education in [address] [phone] Martha Hollins APRN, C.N.P., M.S.N. [address] [place] [phone] 06/27/2024 2:00 PM CDT Clinical Communication Virtual Review in [place], [place] 200 [place] [phone] 07/01/2024 8:00 AM CDT Comprehensive Visit Preoperative Evaluation Center in [place], [place] [address] [place] [phone] Martha Hollins APRN, C.N.P., M.S.N. [address] [place] [phone] 07/01/2024 11:30 AM CDT Appointment Department of Laboratory Medicine and Pathology, [facility] in [place], [place] [address] [place] [phone] Grabiel Leonard, YSABEL, C.N.P., M.S. [address] [place] [phone] 07/01/2024 1:45 PM CDT Comprehensive Visit Division of Metabolic and Abdominal Wall Reconstructive Surgery in [place], [place] [address] [place] [phone] Bobo Valdes M.D. [address] [place] [phone] 07/03/2024 7:05 AM CDT Hospital Encounter Post Anesthesia Care Unit in [place], [place] [address] [place] [phone] Bobo Valdes M.D. [address] [place] [phone] 07/03/2024 7:05 AM CDT - 07/03/2024 11:19 AM CDT Surgery [facility] [address] [place] [phone] Bobo Valdes M.D. [address] [place] [phone] ROBOTIC-ASSISTED DUODENAL SWITCH WITH OR WITHOUT ILEOILEOSTOMY Scheduled Procedures Name Priority Associated Diagnoses Date/Ti me ROBOTIC-ASSISTED SINGLE ANASTOMOSIS DUODENO-ILEOSTOMY 07/03/2024 7:05 AM CDT ROBOTIC-ASSISTED REPAIR PARAESOPHAGEAL HERNIA 07/03/2024 7:05 AM CDT documented as of this encounter Procedures Procedure Name Priority Date/Time Associated Diagnosis Comments UPPER GI ENDOSCOPY Routine 03/28/2024 7: 28 AM CDT Morbid Obesity Body Mass Index 50.0-59.9 Adult (HCC) Gastroesophageal Reflux Disease EGD (ESOPHAGEALGASTRODU ODENOSCOPY) Routine 03/28/2024 7:28 AM CDT Morbid Obesity Body Mass Index 50.0-59.9 Adult (HCC) Gastroesophageal Reflux Disease documented in this encounter Results * Upper GI Endoscopy (03/28/2024 7:28 AM CDT) 03/28/2024 7:28 AM CDT Impressions [facility] - 03/28/2024 8:26 AM CDT Post-op Diagnoses: ? - Normal esophagus without evidence of erosive esophagitis or Chatterjee's ? esophagus. ? - 3 cm sliding hiatal hernia. ? - Multiple benign fundic gland gastric polyps. No evidence of gastric ? erosions or ulcerations. ? - Normal examined duodenum. Narrative [facility] - 03/28/2024 8:26 AM CDT Isac 6 [...] APRN C.N.P., M.S.N. G I PROCEDURE ORDERABLES Performing Organization Address City/State/ZIP Co ks Phone Number [facility] documented in this encounter Visit Diagnoses Diagnosis Morbid Obesity Body Mass Index 50.0-59.9 Adult (HCC) Gastroesophageal Reflux Disease documented in this encounter Administered Medications documented in this encounter Active and Recently Administered Medications Times are shown in CDT. Continuous Medication Order 03/26/2024 03/27/2024 03/28/2024 Lactated Ringer's 20 mL/hr, intravenous, Continuous, Starting on Lena 03/28/24 at 0900, PACU & Post-Op 0900 (Due) PRN Medication Order 03/26/2024 03/27/2024 03/28/2024 fentaNYL injection 25 mcg (SUBLIMAZE) 25 mcg, intravenous, Every 2 min PRN, moderate pain or score 4-6 of 10, severe pain or score 7-10 of 10, Starting on Lena 03/28/24 at 0858, PACU (only), Up to maximum total dose of 200 mcg granisetron (PF) injection 1 mg (KYTRIL) 1 mg, intravenous, Once as needed, nausea, vomiting, Starting on Lena 03/28/24 at 0858, For 1 dose, PACU (only), If patient does not respond to ondansetron or haloperidol. (order of antiemetic administration - ondansetron then haloperidol then granisetron) documented in this encounter
--- OUTSIDE RECORDS SUMMARY | 2024-06-13 13:36 | XMS_ITS ---
Author Organization [facility] Address [address] [place] [address] Care Team Providers Care Heavy Forger Name Role Phone Unavailable Primary Care Provider Unavailabl e Bariatrics Program Status:Enrolled (Active) Start date:07/26/2023 Enrollment date:07/26/2023 Related social determinants of health:Food Insecurity, Transportation Needs Continued Care and Services Coordination
--- OUTSIDE RECORDS SUMMARY | 2024-06-13 13:36 | XMS_ITS | Encounter Summary ---
Author Organization [facility] Address [address] [place] [address] Care Team Providers Care Supervisor Order Takers Name Role Phone Unavailable Primary Care Provider Unavailabl e Reason for Referral * Outpatient (Routine) - Closed Specialty Diagnoses / Procedures Referred By Gilbert lui Referred To Contact General Surgery Diagnoses Morbid Obesity Body Mass Index 50.0-59.9 Adult (HCC) Zeinab Arce M.D. [address] [place] [phone] [facility] Referral ID Status Reason Start Date Expiration Date Visits Re quested Visits Authorized [id number] Closed 03/07/2024 09/06/2025 1 1 Reason for Visit * Outpatient (Routine) - Closed Specialty Diagnoses / Procedures Referred By Gilbert lui Referred To Contact Endocrinology Diagnoses Morbid Obesity Body Mass Index 50.0-59.9 Adult (HCC) Zeinab Arce M.D. [address] [place] [phone] [facility] Referral ID Status Reason Start Date Expiration Date Visits Re quested Visits Authorized [id number] Closed 02/05/2024 08/06/2025 1 1 Encounter Details Date Type Department Care Team (Latest Contact Info) Description 03/07/2024 11:30 AM CDT Office Visit Division of Endocrinology in [place], [place] [address] [place] [phone] Zeinab Arce M.D. [address] [place] [address] Gastroesophageal Reflux Disease (Primary Dx); Morbid Obesity Body Mass Index 50.0-59.9 Adult (HCC); Hypertension Essential Primary Social History Tobacco Use Types Packs/Day Years [...] your living situation today? I have a [facility] place to live 09/21/2023 Sex and Gender Information Value Date Recorded Sex Assigned at Female 07/26/2023 12:31 PM CDT Gender Identity Female 07/26/2023 12:31 PM CDT Sexual Orientation Straight 07/26/2023 12 :47 PM CDT documented as of this encounter Last Filed Vital Signs Vital Sign Reading Time Taken Comments Blood Pressure 146/84 03/07/2024 11:19 AM CDT Pulse 77 03/07/2024 11:19 AM CDT Temperature - - Respiratory Rate - - Oxygen Saturation - - Inhaled Oxygen Concentration - - Weight 171 kg (376 lb 5.2 oz) 03/07/2024 11:19 A M CDT Height 169 cm (5' 6.54) 03/07/2024 11:19 AM CDT Body Mass Index 59.77 03/07/2024 11:19 AM CDT documented in this encounter Progress Notes * Zeinab Arce M.D. - 03/07/2024 11:30 AM CDT SUBJECTIVE CHIEF COMPLAINT / REASON FOR VISIT Clarisse Campos is seen in follow up in preparation towards bariatric surgery. HISTORY OF PRESENT ILLNESS Her initial visit was via telemedicine. Her overall medical assessment revealed low medical complexity. She has completed behavioral psychology assessment. No contraindications to identified. She completed the 12 week behavioral program which she found quite enjoyable. She continues to be limited in her activity. She just purchased an activity tracker. She is adherent to CPAP therapy in the management of her sleep apnea. She is a nonsmoker. Weight history: Initial Consultation: Reported 360 lb Current: Wt (!) 171 kg (375 lb The following portions of the patient's history reviewed and updated as appropriate: Allergies, current medication, family history, medical history, surgical history, social history and problem list. Reviewed encounter review of systems and pertinent responses are noted in the history. OBJECTIVE VITAL SIGNS Ht 169 cm Wt (!) 171 kg Body mass index is 59.77 kg/m??. Vitals: 03/07/24 1119 BP: 146/84 Pulse: 77 PHYSICAL EXAMINATION General: Alert and in no distress Heart: Distant heart sounds regular rate and rhythm no obvious murmurs Lungs: Clear bilaterally DIAGNOSTICS LABORATORY TESTING: Reviewed. ASSESSMENT / PLAN #1 Obesity Body Mass Index 50.0-59.9 Adult #2 Gastroesophageal Reflux Disease #3 Hypertension Essential Primary She does come in every other than reported but we suspect this was related to an estimated weight at the time of her initial visit. Her weights have been recorded during her participation in behavioral therapy and it has been stable. However I have encouraged her to start tracking her steps with a goal gradually increasing towards 5000 steps daily. We will proceed with a surgical consultation. The surgical team will review both the Tio-en-Y gastric bypass and biliopancreatic diversion and duodenal switch. Once that is agreed, prior authorization will be requested and surgery scheduled. Present I have encouraged her ongoing efforts. I personally spent over half of a total 20 minutes in counseling and discussion with the patient and coordination of care as described above. documented in this encounter Plan of Treatment Upcoming Encounters Date Type Department Care Team (Latest Contact Info) Description 06/14/2024 1:00 PM CDT Telemedicine Department of Nutrition and Diabetes Education in [address] [phone] Martha Hollins APRN, C.N.P., M.S.N. [address] [place] [phone] 06/27/2024 2:00 PM CDT Clinical Communication Virtual Review in [address] [phone] 07/01/2024 8:00 AM CDT Comprehensive Visit Preoperative Evaluation Center in [address] [phone] Martha Hollins APRN, C.N.P., M.S.N. [address] [place] [phone] 07/01/2024 11:30 AM CDT Appointment Department of Laboratory Medicine and Pathology, [facility], in [address] [phone] Grabiel Leonard APRN, C.N.P., M.S. [address] [place] [phone] 07/01/2024 1:45 PM CDT Comprehensive Visit Division of Metabolic and Abdominal Wall Reconstructive Surgery in [place], [place] [address] [place] [phone] Bobo Valdes M.D. [address] [place] [phone] 07/03/2024 7:05 AM CDT Hospital Encounter Post Anesthesia Care Unit in [place], [place] [address] [place] [phone] Bobo Valdes M.D. [address] [place] [phone] 07/03/2024 7:05 AM CDT - 07/03/2024 11:19 AM CDT Surgery [facility] OR [address] [place] [phone] Bobo Valdes M.D. [address] [place] [phone] ROBOTIC-ASSISTED DUODENAL SWITCH WITH OR WITHOUT ILEOILEOSTOMY Scheduled Procedures Name Priority Associated Diagnoses Date/Ti me ROBOTIC-ASSISTED SINGLE ANASTOMOSIS DUODENO-ILEOSTOMY 07/03/2024 7:05 AM CDT ROBOTIC-ASSISTED REPAIR PARAESOPHAGEAL HERNIA 07/03/2024 7:05 AM CDT Scheduled Referrals Name Type Priority Associated Diagnoses Orde r Schedule General Surgery - Bariatric consult (clinic) Outpatient Referral Routine Morbid Obesity Body Mass Index 50.0-59.9 Adult (HCC) Expected: 03/07/2024, Expires: 06/07/2025 documented as of this encounter Visit Diagnoses Diagnosis Gastroesophageal Reflux Disease- Primary Morbid Obesity Body Mass Index 50.0-59.9 Adult (HCC) Hypertension Essential Primary documented in this encounter
--- OUTSIDE RECORDS SUMMARY | 2024-06-13 13:36 | XMS_ITS | Encounter Summary ---
Author Organization [facility] Address [address] [place] [address] Care Team Providers Care Addiction Treatment Counselor Name Role Phone Unavailable Primary Care Provider Unavailabl e Encounter Details Date Type Department Care Team (Late st Contact Info) Description 03/28/2024 8:02 AM CDT Anesthesia Event Division of Gastroenterology in [place], [place] [address] [place] [phone] Evelyne Gonzalez [address] [place] [phone] Marlin Kinney, PIECE MAKER, DIRECTOR OF MEDICAL STAFF SERVICES, [employer] [address] [place] [phone] Anesthesia Record Procedure Summary Procedure Name Responsible Anesthesiologist Anesthesia Start Time Anesthesia Stop Time EGD (ESOPHAGEALGASTRODU ODENOSCOPY) Evelyne Gonzalez 03/28/24 0802 03/28/24 0850 Events Date Time Event Comment 03/28/2024 0802 An Start Machine/Equipme nt Checked Infection Precautions Followed Procedure/Site Verified NPO Status Verified Supine Standard ASA Monitors Applied 0807 Turnover to Proceduralist 0812 Proc Start 0819 Proc Fin 0850 An End I completed my handoff to the receiving staff during which we 1. Identified the patient 2. Identified the responsible provider 3. Reviewed the pertinent medical history 4. Discussed the surgical course 5. Reviewed intra-op anesthesia management and issues during anesthesia 6. Set expectations for post-procedure period 7. Allowed opportunity for questions and acknowledgement of understanding. Meds Name Total midazolam PF injection 1 mg/mL 2 mg fentanyl injection 50 mcg/mL 100 mcg ondansetron PF 4 mg/2 mL injection 4 mg propofol 10 mg/mL injection 40 mg propofol 10 mg/mL infusion 970.03 mg Lactated Ringers Free Drip 200 mL * Agents No agents on file. * Blood No blood administrations on file. Lines, Drains, and Airways Type Details Placement Removal Peripheral IV Placement Date: 03/07 01/27; Placement Time: 724; Catheter Size: 20 G; Orientation: Right; Location: Antecubital; Site Prep: Chlorhexidine (Preferred); Technique: Anatomical landmarks; Inserted by: [facility] [place]; Insertion Attempts: 1; Removal Date: 03/28/24; Removal Time: 857; Removal Reason: Patient discharged 03/28/[address] by Sujit Garvey 03/28/24857 by Denise Motta R.N. documented in this encounter Social History Tobacco Use Types Packs/Day Years [...] situation today? I have a [facility] place to live 09/21/2023 Sex and Gender Information Value Date Recorded Sex Assigned at Female 07/26/2023 12:31 PM CDT Gender Identity Female 07/26/2023 12:31 PM CDT Sexual Orientation Straight 07/26/2023 12 :47 PM CDT documented as of this encounter OR Notes * Anesthesia Postprocedure Evaluation - Evelyne Gonzalez - 03/28/2024 9:23 AM CDT Patient: Clarisse Campos Procedure Summary Date: 03/28/24 Room / Location: Division of Gastroenterology in [place], [place] Anesthesia Start: 801 Anesthesia Stop: 899 Procedure: EGD (ESOPHAGEALGASTRODUODENOSCOPY) Diagnosis: Morbid Obesity Body Mass Index 50.0-59.9 Adult (HCC) Gastroesophageal Reflux Disease Morbid Obesity Body Mass Index 50.0-59.9 Adult (HCC) Gastroesophageal Reflux Disease Scheduled Providers: Evelyne Gonzalez Responsible Provider: Evelyne Gonzalez Anesthesia Type: MAC ASA Status: 3 Anesthesia Type: MAC Last vitals Vitals Value Taken Time BP 160/89 03/28/24 0850 Temp 36.4 ??C 03/28/24 0826 Pulse 77 03/28/24 0852 Resp 17 03/28/24 0852 SpO2 96 % 03/28/24 0852 Vitals shown include unfiled device data. Please reference Vitals flowsheet for most recent vital signs. Anesthesia Post Evaluation Patient Disposition: dismissal Cardiovascular status: hemodynamics (HR & BP) acceptable Respiratory status: patent airway with spontaneous effort Temperature: normothermic Oxygen requirements: room air Level of consciousness: awake Pain score: pain adequately controlled and/or at baseline Post Op nausea/vomiting: none Hydration status: euvolemic * Anesthesia Preprocedure Evaluation - Marlin Kinney APRN, CRNA, DNAP - 03/28/2024 7:38 AM CDT Preprocedure Anesthesia & H&P Assessment Procedure Summary Date/Time: 03/28/24 0745 Scheduled providers: Marlin Kinney APRN, CRNA, DNAP Procedure: EGD (ESOPHAGEALGASTRODUODENOSCOPY) Diagnosis: Morbid Obesity Body Mass Index 50.0-59.9 Adult (HCC) [E66.01, Z68.43] Gastroesophageal Reflux Disease [K21.9] Morbid Obesity Body Mass Index 50.0-59.9 Adult (HCC) [E66.01, Z68.43] Gastroesophageal Reflux Disease [K21.9] Location: Division of Gastroenterology in [place], [place] Pertinent components of the patient's history including current problem list, medical history, surgical history, family history, social history, medications and allergies were reviewed. Present illness and pre-op diagnosis were confirmed. The planned surgery / procedure was verified with the patient / legal guardian. The patient's general health condition remains unchanged RELEVANT COMORBID CONDITIONS CV (+) Hypertension Essential Primary RESP (+) Obstructive Sleep Apnea Adult GI (+) Gastroesophageal Reflux Disease Other (+) Morbid Obesity Body Mass Index 50.0-59.9 Adult (HCC) OBJECTIVE PHYSICAL EXAMINATION Airway (HEENT) Mallampati: II TM Distance: >3 FB Neck ROM: Full Mouth Opening: >3 cm Cardiovascular Rhythm: Regular Rate: Normal Cardiovascular Assessment: cardiovascular normal Functional Capacity: >4 METS Pulmonary Pulmonary Assessment: Clear General / Constitutional Constitutional Assessment: Obese General State of Health:: calm Neurological Neurologic Assessment: alert and alert and oriented x 3 Dental Dental Assessment: lower dentures and upper dentures ASSESSMENT / PLAN ANESTHESIA PLAN ASA: 3 Anesthesia Plan: MAC Patient seen and allergies reviewed, anesthesia plan and risks discussed directly with patient /legal guardian or through an medical concierge. Risks/Benefits/Alternatives of Blood transfusion discussed with patient / legal guardian, includingan opportunity to ask questions and/or decline some or all transfusion therapies. The patient / legal guardian consented to the use of all blood products, as deemed medically necessary Approval to Proceed: approved for anesthesia documented in this encounter Plan of Treatment Upcoming Encounters Date Type Department Care Team (Latest Contact Info) Description 06/14/2024 1:00 PM CDT Telemedicine Department of Nutrition and Diabetes Education in [place], [place] [address] [place] [phone] Martha Hollins APRN, C.NRoro., M.S.N. [address] [place] [phone] 06/27/2024 2:00 PM CDT Clinical Communication Virtual Review in [place], [place] 200 [place] [phone] 07/01/2024 8:00 AM CDT Comprehensive Visit Preoperative Evaluation Center in [place], [place] [address] [place] [phone] Martha Hollins APRN, C.NRoro., M.S.N. [address] [place] [phone] 07/01/2024 11:30 AM CDT Appointment Department of Laboratory Medicine and Pathology, [facility], in [place], [place] [address] [place] [phone] Grabiel Leonard, YSABEL, C.N.P., M.S. [address] [place] [phone] 07/01/2024 1:45 PM CDT Comprehensive Visit Division of Metabolic and Abdominal Wall Reconstructive Surgery in [place], [place] [address] [place] [phone] Bobo Valdes M.D. [address] [place] [phone] 07/03/2024 7:05 AM CDT Hospital Encounter Post Anesthesia Care Unit in [place], [place] [address] [place] [phone] Bobo Valdes M.D. [address] [place] [phone] 07/03/2024 7:05 AM CDT - 07/03/2024 11:19 AM CDT Surgery [facility] OR [address] [place] [phone] Bobo Valdes M.D. [address] [place] [phone] ROBOTIC-ASSISTED DUODENAL SWITCH WITH OR WITHOUT ILEOILEOSTOMY Scheduled Procedures Name Priority Associated Diagnoses Date/Ti me ROBOTIC-ASSISTED SINGLE ANASTOMOSIS DUODENO-ILEOSTOMY 07/03/2024 7:05 AM CDT ROBOTIC-ASSISTED REPAIR PARAESOPHAGEAL HERNIA 07/03/2024 7:05 AM CDT documented as of this encounter Visit Diagnoses Not on filedocumented in this encounter Administered Medications Inactive Administered Medications - up to 3 most recent administrations Medication Order MAR Action Action Date Dose Rate Site fentaNYL injection (SUBLIMAZE) intravenous, As needed, Starting on Lena 03/28/24 at 0808, Anesthesia Intra-op Given 03/28/2024 8:12 AM CDT 25 mcg Given 03/28/2024 8:08 AM CDT 50 mcg Given 03/28/2024 8:04 AM CDT 25 mcg Lactated Ringer's intravenous, Continuous Infusion: Per Instructions PRN, Starting on Lena 03/28/24 at 0802, Anesthesia Intra-op New Bag 03/28/2024 8:02 AM CDT midazolam (PF) injection (VERSED) intravenous, As needed, Starting on Lena 03/28/24 at 0803, Anesthesia Intra-op Given 03/28/2024 8:08 AM CDT 1 mg Given 03/28/2024 8:03 AM CDT 1 mg ondansetron (PF) injection (ZOFRAN) intravenous, As needed, Starting on Lena 03/28/24 at 0804, Anesthesia Intra-op Given 03/28/2024 8:04 AM CDT 4 mg propofol 10 mg/mL infusion (DIPRIVAN) intravenous, Continuous Infusion: Per Instructions PRN, Starting on Lena 03/28/24 at 0804, Anesthesia Intra-op New Bag 03/28/2024 8:04 AM CDT 125 mcg/kg/min 126.525 mL/hr propofoL injection (DIPRIVAN) intravenous, As needed, Starting on Lena 03/28/24 at 0804, Anesthesia Intra-op Given 03/28/2024 8:06 AM CDT 20 mg Given 03/28/2024 8:04 AM CDT 20 mg documented in this encounter
[2024-06-13 14:31] LABS: Vitamin D 25 Hydroxy* 51 ng/mL (30-80)
== END 2024-06-13 13:30 | disposition home or self-care (01) ==
LOC: NPINS 13:29
PROVIDERS: PCP Family Medicine; Visit Provider Family Medicine
DX: R79.89 Other specified abnormal findings of blood chemistry (principal)
CPT/HCPCS: 82306

== ENCOUNTER 2025-02-07 09:48 | Outpatient (CLI) | payer MEDICAID, SELFPAY | END 2025-02-07 09:49 | disposition home or self-care (01) | LOC: RAD 09:50 | PROVIDERS: PCP Family Medicine; Visit Provider Family Medicine | DX: I34.1 Nonrheumatic mitral (valve) prolapse (principal); I34.0 Nonrheumatic mitral (valve) insufficiency | CPT/HCPCS: 93306 ==

== ENCOUNTER 2025-03-05 13:00 | Outpatient (RCR) | payer MEDICAID, SELFPAY | END 2025-04-02 11:01 | disposition home or self-care (01) | PROVIDERS: PCP Family Medicine; Visit Provider Family Medicine | DX: G93.31 Postviral fatigue syndrome (principal); M79.7 Fibromyalgia; U09.9 Post COVID-19 condition, unspecified; R41.89 Other symptoms and signs involving cognitive functions and awareness; Z51.89 Encounter for other specified aftercare | CPT/HCPCS: 97032; 97110; 97112; 97140; 97162; 97164; 97165; 97535 ==

== ENCOUNTER 2025-04-02 14:15 | Outpatient (RCR) | payer MEDICAID, SELFPAY | END 2025-04-02 15:36 | disposition home or self-care (01) | PROVIDERS: PCP Family Medicine; Visit Provider Specialist | DX: Z48.89 Encounter for other specified surgical aftercare (principal); M79.644 Pain in right finger(s); Z51.89 Encounter for other specified aftercare | CPT/HCPCS: 97035; 97110; 97140; 97165; L3933; X5282 ==